=== PATIENT | female | born 1955 | race Caucasian/White ===

== ENCOUNTER → 2018-02-06 10:56 | Outpatient (CLI) | payer OTHER, SELFPAY ==
[2018-02-07 08:53] LABS: Hep C Antibodies <0.1 s/co ratio (0.0-0.9)
== END ==
PROVIDERS: Family Provider Family Medicine; PCP Family Medicine; Visit Provider Family Medicine
DX: Z11.59 Encounter for screening for other viral diseases (principal)
CPT/HCPCS: 36415; 86803

== ENCOUNTER → 2018-02-18 10:20 | Outpatient (CLI) | payer OTHER, SELFPAY ==
[2018-02-20 09:30] LABS: HPV Reflexed? NOT INDICATED
== END ==
PROVIDERS: Family Provider Family Medicine; PCP Family Medicine; Visit Provider Family Medicine
DX: Z01.419 Encounter for gynecological examination (general) (routine) without abnormal findings (principal)
CPT/HCPCS: 36415; 82306; 88175; G0145

== ENCOUNTER 2018-07-18 06:03 | Day surgery (SDC) | payer OTHER, SELFPAY ==
[2018-07-18] VITALS (9 sets, daily range): BP systolic 84–134; BP diastolic 53–89; PULSE 55–65; RESP 14–16; TEMP 36.2–36.6; O2SAT 93–100; BMI 33.7
--- NOTE | 2018-07-18 | COLBX_PTH ---
PATIENT: RAO MENENDEZ LOC: EN U#:[id number] AGE/SX: 62/F ROOM: RE07/18/[address]: Dr. Finn Cabezas MD : 1955 BED: DIS: 07/18/2018 SPEC #: [id number] RECD: 07/18/18 13:11 STATUS: SULY RECheri #: [id number] DIAMOND: 07/18/18 00:[address]: Finn Cabezas DEPT: SURGICAL PATHOLOGY RECD BY: David Fortune ENTERED: 07/18/18 13:11 SP TYPE: COLON BX OTHR DR: Dr. Apple Quiles MD Tissues: Descending colon Procedures: Surgery Specimen Level IV HEADER OPERATION: Colonoscopy - open access (MOD) PRE-OP DIAGNOSIS: Screening TISSUE SUBMITTED: Biopsy polyp descending colon MICROSCOPIC DIAGNOSIS Polyp descending colon, biopsy: Tubular adenoma. SJ:telma 07/21/18 MICROSCOPIC DESCRIPTION Slides are reviewed. GROSS DESCRIPTION Received in fixative is one container labeled with the patient's name and designated biopsy polyp descending colon. The specimen consists of one irregular fragment of light johnston soft tissue that measures 0.3 x 0.3 x 0.1 cm. The specimen is totally submitted in one cassette. / SJ:telma 07/18/18 TC:1 CPT: 96567
--- NOTE | 2018-07-18 07:05 | PCM.HP.STD ---
Problem List (1) Screening for intestinal cancer Status: Acute History of Present Illness Date of Admission: 07/18/18 The patient is a 62 year old F who enjoys good health. Her most recent colonoscopy was 10 years ago. She denies any bright red blood per rectum or melena. No abdominal pain. She has no direct family members with colon cancer. She presents via our open access program. Past Medical History Allergies ampicillin Allergy (Verified 07/17/18 15:53) Itching Home Medications: Ambulatory Orders Medication Instructions Recorded Cholecalciferol (VIT D3) [Vitamin 1,000 unit PO DAILY 07/17/18 D] Smoking Status: Never smoker Tobacco Use: Non-smoker Review of Systems Constitutional: Denies: Anorexia Cardiovascular: Denies: Chest Pain Respiratory: Denies: Cough Gastrointestinal: Denies: Abdominal Pain Psychiatric: Denies: Anxiety Endocrine: Denies: Change in Body Habitus VTE Information - Inpt Only VTE Present on Admission: No Patient Problems: Active and Suspected Problems Screening for intestinal cancer (Acute) - Physical Exam General: Alert, Oriented x3, Cooperative, No apparent distress HEENT: Atraumatic Oral: Moist Mucosa Neck: Supple Lungs: Clear to auscultation Cardiovascular: Regular rate, Regular Rhythm Abdomen: Bowel Sounds Present, Soft, Non Tender Extremities: No clubbing Skin: No rashes Lymphatic: No Cervical, Supraclavicular, or Inguinal Adenopathy Neurological: Cranial nerves II-XII grossly intact Psych/Mental Status: Normal Affect Vital Signs Temp Pulse Resp BP Pulse Ox 97.2 F L 60 14 125/79 H 97 07/18/18 06:26 07/18/18 06:26 07/18/18 06:26 07/18/18 06:26 07/18/18 06:26 Oxygen Delivery Method Room Air Weight: 196 lb 6.91 oz Body Mass Index (BMI) 33.7 Assessment/Plan All Active Problems Screening for intestinal cancer (Acute) Plan to proceed with a colonoscopy with possible biopsy or polypectomy is indicated. She is aware of the technique, benefits, risks and alternatives. She tolerated the majority of her bowel prep. We will proceed as noted. Finn Cabezas M.D., F.A.C.S.
--- NOTE | 2018-07-18 07:40 | OP.ENDO_ITS ---
Patient Name: Jessica Rahman Procedure Date: 07/18/2018 7:02 AM Date of : 1955 Age: 62 Procedure: Colonoscopy Indications: Screening for colorectal malignant neoplasm Providers: Finn Cabezas MD Referring MD: Finn Cabezas MD Medicines: Midazolam 4 mg IV, Meperidine 100 mg IV Patient Profile: Last Colonoscopy: 10 years ago. Complications: No immediate complications. Procedure: Pre-Anesthesia Assessment: - Prior to the procedure, a History and Physical was performed, and patient medications and allergies were reviewed. The patient's tolerance of previous anesthesia was also reviewed. The risks and benefits of the procedure and the sedation options and risks were discussed with the patient. All questions were answered, and informed consent was obtained. Prior Anticoagulants: The patient has taken no previous anticoagulant or antiplatelet agents. ASA Grade Assessment: II - A patient with mild systemic disease. After reviewing the risks and benefits, the patient was deemed in satisfactory condition to undergo the procedure. After I obtained informed consent, the scope was passed under direct vision. Throughout the procedure, the patient's blood pressure, pulse, and oxygen saturations were monitored continuously. The colonoscope was introduced through the anus and advanced to the cecum, identified by appendiceal orifice and ileocecal valve. The colonoscopy was performed with moderate difficulty due to a tortuous colon. The patient tolerated the procedure well. The quality of the bowel preparation was good. The ileocecal valve was photographed. Moderate Sedation: Moderate (conscious) sedation was personally administered by the endoscopist. The following parameters were monitored: oxygen saturation, heart rate, blood pressure, and response to care. Total physician intraservice time was 15 minutes. Scope In: 7:13:59 AM Scope Withdrawal Time 0 hours 8 minutes 49 seconds Scope Out: 7:34:15 AM Total Procedure Duration Time 0 hours 20 minutes 16 seconds Findings: The perianal and digital rectal examinations were normal. A 5 mm polyp was found in the descending colon. The polyp was sessile. The polyp was removed with a cold biopsy forceps. Resection and retrieval were complete. The colon (entire examined portion) was significantly tortuous. Advancing the scope required changing the patient to a supine position and using manual pressure. The exam was otherwise without abnormality. Impression: - One 5 mm polyp in the descending colon, removed with a cold biopsy forceps. Resected and retrieved. - Tortuous colon. - The examination was otherwise normal. Recommendation: - Discharge patient to home. - Resume previous diet. - Continue present medications. - Telephone my office for pathology results in 1 week. - Repeat colonoscopy in 5 years for surveillance. Procedure Code(s): --- Professional --- 77735, Colonoscopy, flexible; with biopsy, single or multiple 99763, 59, Moderate sedation services provided by the same physician or other qualified health elderly caregiver performing the diagnostic or therapeutic service that the sedation supports, requiring the presence of an independent trained observer to assist in the monitoring of the patient's level of consciousness and physiological status; initial 15 minutes of intraservice time, patient age 5 years or older Diagnosis Code(s): --- Professional --- Z12.11, Encounter for screening for malignant neoplasm of colon D12.4, Benign neoplasm of descending colon Q43.8, Other specified congenital malformations of intestine CPT copyright 2017 [employer]. All rights reserved. The codes documented in this report are preliminary and upon conduit worker review may be revised to meet current compliance requirements. Finn Cabezas MD 07/18/2018 7:40:17 AM This report has been signed electronically. Number of Addenda: 0 Note Initiated On: 07/18/2018 7:02 AM
== END 2018-07-18 09:02 | disposition home or self-care (01) ==
LOC: EN 06:04 → AC 06:05
PROVIDERS: Family Provider Family Medicine; PCP Family Medicine; Referring Provider Surgery; Visit Provider Surgery
PROC: 0DJD8ZZ Inspection of Lower Intestinal Tract, Via Natural or Artificial Opening Endoscopic (ICD-10-PCS; CPT 45378; principal; 2018-07-18 06:55)
DX: Z12.11 Encounter for screening for malignant neoplasm of colon (principal); D12.4 Benign neoplasm of descending colon; Q43.8 Other specified congenital malformations of intestine; Z78.0 Asymptomatic menopausal state
CPT/HCPCS: 45380; 88305; 99152; 99153; J7120

== ENCOUNTER → 2018-07-21 17:12 | Outpatient (CLI) | payer OTHER, SELFPAY ==
--- NOTE | 2018-07-21 17:15 | RAD_ITS ---
STUDY: X-RAY - RIGHT SHOULDER REASON FOR EXAM: Female, 62 years old. Pain TECHNIQUE: 4 view(s) of the shoulder. COMPARISON: None. FINDINGS: There is no evidence of fracture or dislocation. There are mild degenerative changes. There are no radiodense foreign bodies. RAD/Shoulder min 2 Views IMPRESSION: No fracture or dislocation. Mild degenerative changes. Electronically Signed: Fernando Puga, at 16:00 EDT Tel , Service support ,
== END ==
PROVIDERS: Family Provider Family Medicine; PCP Family Medicine; Referring Provider Family Medicine; Visit Provider Family Medicine
DX: M79.601 Pain in right arm (principal)
CPT/HCPCS: 73030

== ENCOUNTER 2018-09-03 15:30 | Outpatient (RCR) | payer OTHER, SELFPAY ==
--- NOTE | 2018-07-24 16:50 | HP.PTEVAL ---
Patient's Visit Information RAO MENENDEZ is a 62 year old F referred to Physical Therapy by Apple Quiles MD with a diagnosis of R shoulder pain. Date of Evaluation: 07/24/18 Physical Therapist: Magdiel Bergeron DPT, OC - Visit Plan Frequency: 3x /Week Duration: 2-4 Weeks Plan: 3x/week for 2-4 weeks for. 1. US nonthermal to R biceps tendon inn groove. 2. Grade 1-2 join t mobs g-h R and pec stretches. 3. painfree strength of ecc biceps, RC and scap/posture to HEP. 4. ES and ice as needed. 5. Ensure approp activity modification. - Subjective Subjective: R arm started hurting at end of February, not sure why but was edging the sidewalk around that time. (old style with wheel). Arm hurt after doing this. R shoulder feels achy. She works in the kitchen washing dishes. Has been comfortable at rest but it hurts in the morning adn will wake her up at night. Feels ok after work. Tying Apron and fastening bra bothers her. Reaching back to the console in the car forced her to remove the remote. Just sought treatment lately, x rays show OA. Not bad. Takes ibuprofen but nothing prescription. No missed work. Life is normal she just hurts. R handed. - Pain R shoulder Pain Intensity (Out of 10): 0 Pain Intensity Range: 0, 2, 5, 10 Comment: worse reaching, ache is a 2. - Objective R biceps tendon in groove max tender, other shoulder structures not bad. Posture is forward head and protracted scap slightly elevated. Full aROM B UE, end range ext rot adn IR on R painful. Strength in biceps 4/5 adn painful, supination 4/5 painful and others 4+ without much pain. Shoulder flexion palm up 4- and painful, empty can 4 adn painless. - ext rotation lag test, slight + R jacob koo, Joyce griffin. 2/3 bi and tri reflexes B. Sensation WNl to gross light touch. Neck ROM painfree adn symmterical. - Goals Goal 1:: Patient feel 75% improved with pain no greater than 1/10 Goal Time Frame: 4-6 Weeks Goal 2:: Fasten bra and reach back without increased pain in R UE. Goal Time Frame: 4-6 Weeks Goal 3:: Sleep without waking at night due to pain. Goal Time Frame: 2-4 Weeks Goal 4:: I approp HEP to minimize future problems Goal Time Frame: 4-6 Weeks - Rehabilitation Potential Physical Therapy Diagnosis: R biceps tendonitis Rehabilitation Potential: Good - Anticipated Interventions Patient/Client Instruction: Educate patient on: Condition, Plan of Care For the Purpose of:: To decrease pain, To increase tolerance to activity/condition/position Therapeutic Exercise to Include: Strength training, Flexibilty training, Passive ROM, Active ROM For the Purpose of:: To decrease pain, To increase ROM, To increase tolerance to activity/condition/position Manual Therapy Techniques to Include: Mobilization, Soft tissue mobilization For the Purpose of:: To decrease pain, To increase ROM TENS: Yes Cryotherapy (ice pack, ice massage): Yes Ultrasound (thermal/non thermal): Yes - nonthermal For the Purpose of:: To decrease pain, To decrease swelling/inflammation Thank you for the opportunity to evaluate your patient. For Medicare and Medicare HMO plans, please review the plan of care and approve it. It will need to be FAXED BACK to us at [phone] for Medicare purposes. Please let me know if there are questions or concerns regarding this plan of care. Physician Signature: Date:
--- NOTE | 2018-09-03 15:54 | HP.PTDCSUM ---
HP - PT D/C Summary It has been my pleasure to treat RAO MENENDEZ under orders from Apple Quiles MD, for the diagnosis of R shoulder pain for a total of 8 visit(s). Discharge Date: 09/03/18 Please see the following information for a summary of their discharge status. - Subjective Subjective: Shoulder is about the same with slight improvement since last time. Has not been overly diligent with ex. Bought new bras and they seem to be bothersome if it was too tight, Working on IR of shoulder and it is really improving. Pain in shoulder has tony a few times this week with reach and gets a quick pinch. [place]ing 3x/week. No f/u with doctor. - Pain R shoulder Pain Intensity (Out of 10): 0 - Overall Improvement % Improvement: 75 - Objective Objective/Function: Full aROM and 4/5 strength B shoulders without pain. Posture is improved - Goals Goal 1:: Patient feel 75% improved with pain no greater than 1/10 Goal Progress: Goal Met Goal 2:: Fasten bra and reach back without increased pain in R UE. Goal Progress: Goal Met Goal 3:: Sleep without waking at night due to pain. Goal Progress: Goal Met Goal 4:: I approp HEP to minimize future problems Goal Progress: Goal Met - Plan Plan: D/C - D/C Information Discharge Comments: Willc ontinue with HEp and activity modification and call doctor if pain does not continue to improve. If there are questions or concerns regarding this patient's physical therapy, please feel free to call me at [phone]. Thank you for the referral of this patient. Sincerely, Magdiel Bergeron, DPT, OC
== END 2018-09-03 19:00 | disposition home or self-care (01) ==
LOC: PT 15:30
PROVIDERS: Family Provider Family Medicine; PCP Family Medicine; Referring Provider Family Medicine; Visit Provider Family Medicine
DX: M25.511 Pain in right shoulder (principal)
CPT/HCPCS: 97035; 97110; 97140; 97162; 97164; 97530

== ENCOUNTER → 2018-12-01 08:23 | Outpatient (CLI) | payer OTHER, SELFPAY ==
--- NOTE | 2018-12-01 08:26 | BI_ITS ---
MAMMOGRAPHY - BILATERAL SCREENING REASON FOR EXAM: Female, 63 years old. Routine annual screening examination. PERTINENT HISTORY: Non-contributory. TECHNIQUE: Digital bilateral breast glenn (3D mammographic acquisition) in the CC and MLO projections. 2-D mediolateral oblique (MLO) and craniocaudad (CC) views of both breasts were obtained. CAD: Full Field Digital Mammography with Computer Added Detection was performed. COMPARISON: Comparison is made with prior study May 22, 2017 and February 09, 2016. FINDINGS: Breast Composition: The breasts are almost entirely fatty. There are no dominant masses or suspicious calcifications. Stable 7.6 mm well-defined nodule in the axillary deep portion of the right breast. This most likely represents a small lymph node. No other significant abnormalities are identified. There has been no significant change since the prior study. BI/SCREENING MAMM (CAD), BILAT IMPRESSION: Stable bilateral screening mammogram. Yearly follow-up mammogram recommended. (A) ASSESSMENT CATEGORY: BIRADS Category 2: Benign. A letter regarding these results will be sent to the patient by the facility within 30 days. Approximately 10% of breast cancers are not detected by mammography. A normal mammogram should not delay biopsy of a clinically suspicious abnormality. [id number] Electronically Signed: Parish Echeverria, at 11:10 EDT , Service support ,
== END ==
PROVIDERS: Family Provider Family Medicine; PCP Family Medicine; Visit Provider Family Medicine
DX: Z12.31 Encounter for screening mammogram for malignant neoplasm of breast (principal)
CPT/HCPCS: 77063; 77067

== ENCOUNTER → 2019-04-30 | Outpatient (CLI) | payer OTHER, SELFPAY ==
[2019-04-30 11:27] LABS: Vitamin D,25 Hydroxy 19.9 ng/mL (29.95-100.01)
== END | disposition home or self-care (01) ==
LOC: LAB 10:42
PROVIDERS: Family Provider Family Medicine; PCP Family Medicine; Referring Provider Family Medicine; Visit Provider Family Medicine
DX: E55.9 Vitamin D deficiency, unspecified (principal)
CPT/HCPCS: 36415; 82306

== ENCOUNTER 2019-09-08 15:30 | Outpatient (RCR) | payer OTHER, SELFPAY | END 2019-09-08 19:00 | disposition home or self-care (01) | LOC: MASS 15:30 | PROVIDERS: Family Provider Family Medicine; PCP Family Medicine; Visit Provider Family Medicine | DX: M79.603 Pain in arm, unspecified (principal); M79.10 Myalgia, unspecified site | CPT/HCPCS: 97124 ==

== ENCOUNTER → 2020-06-27 07:17 | Outpatient (CLI) | payer OTHER, SELFPAY ==
[2018-07-18 06:26] VITALS: BMI 33.7
--- NOTE | 2020-06-27 07:20 | BI_ITS ---
MAMMOGRAPHY - BILATERAL SCREENING REASON FOR EXAM: Female, 64 years old. Routine annual screening examination. PERTINENT HISTORY: Non-contributory. TECHNIQUE: Digital bilateral breast mac (3D mammographic acquisition) in the CC and MLO projections. 2-D mediolateral oblique (MLO) and craniocaudad (CC) views of both breasts were obtained. CAD: Full Field Digital Mammography with Computer Added Detection was performed. COMPARISON: None. FINDINGS: Breast Composition: The breasts are almost entirely fatty. There are no dominant masses or suspicious calcifications. No other significant abnormalities are identified. BI/SCREEN MAMM (CAD) W/MAC BILAT IMPRESSION: Stable bilateral screening mammogram. Yearly follow-up mammogram recommended. (A) ASSESSMENT CATEGORY: BIRADS Category 2: Benign. A letter regarding these results will be sent to the patient by the facility within 30 days. Approximately 10% of breast cancers are not detected by mammography. A normal mammogram should not delay biopsy of a clinically suspicious abnormality. [id number] Electronically Signed: Misbah Coronado, at 16:33 EDT Tel , Service support ,
== END ==
PROVIDERS: PCP Family Medicine; Referring Provider Family Medicine; Visit Provider Family Medicine
DX: Z12.31 Encounter for screening mammogram for malignant neoplasm of breast (principal)
CPT/HCPCS: 77063; 77067

== ENCOUNTER → 2020-10-24 16:46 | Outpatient (CLI) | payer OTHER, SELFPAY ==
[2018-07-18 06:26] VITALS: BMI 33.7
--- NOTE | 2020-10-24 16:53 | RAD_ITS ---
STUDY: X-RAY - LEFT FOOT CLINICAL: Bilateral foot pain, left greater than right. TECHNIQUE: 3 view(s) of the foot. COMPARISON: None. FINDINGS: There is a plantar calcaneal enthesophyte and a small posterior calcaneal enthesophyte. Otherwise, unremarkable talus, calcaneus, and tarsal bones. There is an os trigonum. Normal visualized subtalar, talonavicular, calcaneocuboid, tarsal and tarsometatarsal articulations. Normal metatarsi. Normal metatarsophalangeal joint of the great toe. Normal tibial and fibular sesamoid bones. Normal interphalangeal joint of the great toe. Normal phalanges of the great toe. Normal second through fifth metatarsophalangeal joints. Normal interphalangeal joints and phalanges of the lesser toes. The soft tissue structures are unremarkable. RAD/Foot min 3 Views IMPRESSION: Calcaneal enthesopathy. Electronically Signed: Reno Sierra MD at 9:22 EST Tel , Service support ,
--- NOTE | 2020-10-24 16:53 | RAD_ITS ---
STUDY: X-RAY - RIGHT FOOT CLINICAL: Bilateral foot pain, left greater than right. TECHNIQUE: 3 view(s) of the foot. COMPARISON: None. FINDINGS: There are small posterior and plantar calcaneal enthesophytes. Otherwise, unremarkable talus, calcaneus, and tarsal bones. There is an os trigonum. Normal visualized subtalar, talonavicular, calcaneocuboid, tarsal and tarsometatarsal articulations. Normal metatarsi. Normal metatarsophalangeal joint of the great toe. Normal tibial and fibular sesamoid bones. Normal interphalangeal joint of the great toe. Normal phalanges of the great toe. Normal second through fifth metatarsophalangeal joints. Normal interphalangeal joints and phalanges of the lesser toes. The soft tissue structures are unremarkable. RAD/Foot min 3 Views IMPRESSION: Mild calcaneal enthesopathy. Electronically Signed: Reno Sierra MD at 9:21 EST Tel , Service support ,
== END ==
PROVIDERS: PCP Family Medicine; Referring Provider Family Medicine; Visit Provider Family Medicine
DX: M79.672 Pain in left foot (principal); M79.671 Pain in right foot
CPT/HCPCS: 73630

== ENCOUNTER → 2021-06-26 07:27 | Outpatient (CLI) | payer OTHER, SELFPAY ==
--- NOTE | 2021-06-26 09:04 | NEURO_ITS ---
NCS and/or EMG Patient Report Ordering Doctor: Apple Quiles DATE OF SERVICE: 06/26/21 Indication: Progressive numbness and tingling in the first two digits of the right hand. Worsening digging machine operator strength. Pain in the right wrist and thumb. Symptoms are exacerbated by sleep- wears a brace at night with little relief. No neck or radicular pain. Findings: Nerve conduction studies were performed in the right upper extremity. The right median motor study recording the abductor pollicis brevis showed a normal amplitude, prolonged distal latency and normal conduction velocity. The right ulnar motor study recording the abductor digiti minimi showed a normal amplitude, normal distal latency and normal conduction velocity. No conduction block or focal slowing was present across the elbow. Right median-ulnar lumbrical / interosseous motor latencies showed a prolonged median latency compared to the ulnar. The right median sensory response recording digit two showed a reduced amplitude, prolonged latency and markedly slowed conduction velocity. The right ulnar sensory response recording digit five showed a normal amplitude, latency and conduction velocity. The right radial sensory response recording over the extensor snuff box showed a normal amplitude, latency and conduction velocity. Needle EMG of the right upper extremity muscles was performed. No denervation was seen in any muscle. In the abductor pollicis brevis, motor units were slightly large and polyphasic with normal recruitment. All other muscles revealed normal motor unit morphology, activation and recruitment patterns. Impression: This is an abnormal study. There is electrophysiologic evidence of a median neuropathy across the right wrist. The pathophysiology is predominantly demyelination, however, there is evidence of secondary axonal loss. These findings would be compatible with the clinical diagnosis of carpal tunnel syndrome. In addition, there is no electrophysiologic evidence of a superimposed cervical radiculopathy or other entrapment neuropathy in the right upper extremity. Randy Graham D.O. Multi Select Codes Neurology Neurology Interp Codes: 49824-45 Musc test done w/n test comp (interp) and 49397-81 Nrv cndj test 7-8 studies (interp)
== END ==
PROVIDERS: PCP Family Medicine; Referring Provider Family Medicine; Visit Provider Family Medicine
DX: G56.01 Carpal tunnel syndrome, right upper limb (principal)
CPT/HCPCS: 95886; 95910

== ENCOUNTER 2021-10-03 05:45 | Day surgery (SDC) | payer OTHER, SELFPAY ==
[2021-10-03 06:25] VITALS: BP 116/78; PULSE 75; RESP 16; TEMP 36.4; O2SAT 96; BMI 34.3
[2021-10-03] MEDS: Lactated Ringers 1,000 ML 15 ML IV (06:34)
--- NOTE | 2021-10-03 07:15 | PCM.HP.BLA ---
History and Physical Date of Admission: 10/03/21 Date of Service: 07/17/21 MR#:[id number]:[id number]: RAO MENENDEZ #[id number] Provider:Dr. Adrien Gomes, Age/Sex: 65/F Location:[facility]:Signed Intake Intake Visit Reasons: RIGHT WRIST Allergies ampicillin Allergy (Verified 07/17/18 15:53) Itching Medications cholecalciferol (vitamin D3) [Vitamin D] 1,000 unit PO DAILY 07/17/18 [History Confirmed 07/17/21] ascorbate calcium (vitamin C) 500 mg tablet 500 mg PO DAILY 07/17/21 [History Confirmed 07/17/21] esomeprazole magnesium 40 mg capsule,delayed release 40 mg PO DAILY 07/17/21 [History Confirmed 07/17/21] multivitamin 1 tab PO DAILY 07/17/21 [History Confirmed 07/17/21] [facility] Medical History (Updated 07/17/21 @ 09:42 by Stephanie Jhaveri) History of fainting Surgical History (Updated 07/17/21 @ 09:29 by Stephanie Jhaveri) History of tonsillectomy Social History Smoking Status: Never smoker HPI RIGHT WRIST Details: Parts of this documentation were recorded by a scribe, this documentation accurately reflects the service provided and the decisions made by me, Dr. Adrien Gomes, 07/17/21 3138. RAO MENENDEZ is a 65 year old F NEW patient here today for right wrist numbness/tingling and achy pain. She states that she has had the numbness and tingling for about 1 year and this has worsened. She states that she has been using a brace at night for about 6-7 months with some relief at first but the pain and tingling returned. She has numbness and tingling of the 1st through 3rd fingers. 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 Denies any surgery or injections. Denies any injuries to the right wrist. She did have a EMG completed 06/26/2021 which showed carpal tunnel syndrome. She states that she feels a snap inside the wrist at times. ROS Musc Denies joint swelling, Reports numbness and Reports tingling Neuro Yes numbness and Yes tingling Ortho Exam General General: Yes no acute distress Neurologic: Yes alert and Yes oriented x3 Psychologic: Yes reasonable and appropriate Right Wrist/Hand Skin/Wound: No Swelling, No Ecchymosis and Yes capillary refill normal Right Wrist: Yes ROM-Extension 0-60, ROM-Flexion 0-80, ROM-Pronation 0-80, ROM-Supination 0-90, Durken's Test, Phalen's and tender to palpate carpometacarpal joint; No Tinel's, CMC Grind, Thenar Atrophy or Hypothenar Atrophy WRIST: no atrophy good wrist flexion Left Wrist/Hand Skin/Wound: No Swelling and No Ecchymosis Supplemental Info 06/26/21 EMG right upper extremity: Prolonged latency and decreased conduction velocity consistent with carpal tunnel right Coding Level of Care Code Off vis,new,level 3 Diagnoses Right carpal tunnel syndrome G56.01 Assessment and Plan Assessment and Plan (1) Right carpal tunnel syndrome: Status: Acute Plan - Dr. Adrien Gomes, DO: Personally reviewed patients EMG study. Patient educated that she does have right carpal tunnel syndrome and her symptoms are consistant with this. She may also have some CMC joint arthritis but this is not a main concern of hers today and she declined xrays to further eval this. Educated that her treatment options are do nothing or bracing or carpal tunnel release. Reviewed the pre-operative plans with the patient. Risks and benefits of the procedure were fully explained, including but not limited to infection, neurovascular injury, continued pain, arthritis, stiffness, need for further surgery, re-injury, DVT, PE, general risks of anesthesia, and loss of limb or life. The patient understands all the risks and does wish to proceed with right carpal tunnel release. She will be able to move her wrist/hand right after surgery. She will have 1/2lb lifting restriction for 2 weeks then will have a 5lb lifting restriction for 1 week. She will be off work for about 3-4 weeks post op secondary to the type of work she does. She wishes to proceed with surgery in Follow up 2 weeks post op or sooner if pain, swelling, numbness or associated symptoms, or concerns develop. All questions answered. Patient in agreement of plan. 07/17/21 0958<Electronically signed by Adrien Gomes DO>Date Adrien Gomes DO I have re-examined the patient. There are no clinical changes since date of exam
--- NOTE | 2021-10-03 07:16 | EX.PCM.DISCH ---
Discharge Instructions Diet Discharge Diet: No restrictions Activity Keep extremity elevated above heart level: Operative Extremity Dressing / Incision Additional Dressing/Incision Instructions:: Ice and elevate operative extremity next 72 hours. Keep dressing on clean and dry for 48 hours then may remove and allow warm soapy water to rinse over incision but do not submerge until sutures are out. Then apply bandaid over incision and change daily. encourage finger range of motion. Not lift more than 1/2 pound. Minimize narcotic use only as needed and directed, may use OTC NSAID and Tylenol to supplement/substitute for pain control. Follow Up Care Please Follow Up With: Adrien Gomes DO When: 2 weeks Test Results: Test results from this visit will be discussed in further detail at your follow-up appointment, if applicable. Discharge Plan Admission Primary Reason for Your Visit: Right carpal tunnel release Attending Provider: Adrien Gomes Primary Care Provider: Apple Quiles Discharge Orders/Prescriptions Prescriptions: New oxycodone 5 mg tablet 5 mg PO Q4H PRN (Reason: pain) 3 Days Qty: 15 RF: 0 Continued ascorbate calcium (vitamin C) 500 mg tablet 500 mg PO DAILY RF: 0 multivitamin Tablet 1 tab PO DAILY RF: 0 cholecalciferol (vitamin D3) [Vitamin D3] 1,000 UNIT tablet 1,000 unit PO DAILY RF: 0 calcium carbonate [Tums] 300 mg (750 mg) Tablet,Chewable 300 mg PO PRN PRN (Reason: Indigestion) RF: 0 magnesium 200 mg Tablet 400 mg PO DAILY RF: 0 Referrals / Follow Up: Apple Quiles MD [Primary Care Provider] - Disposition Disposition (needs filled in before D/C Order can be placed): Home, Self Care
--- NOTE | 2021-10-03 07:20 | PCM.OPRPT ---
Report of Operation Date of Procedure: 10/03/21 Description of Surgical Findings:: Preoperative diagnosis; right carpal tunnel syndrome Postoperative diagnosis; same Procedure: Right open carpal tunnel release Anesthesia: Local with MAC Tourniquet time; 10 minutes 250 mm Hg Complications: None Indication for procedure; This is a 66-year-old female with long-standing symptoms consistent with carpal tunnel syndrome the patient did have electrodiagnostic evidence of this and has failed conservative treatment. Risks benefits and alternatives were reviewed including risks of bleeding infection nerve artery tissue damage need for further surgery and continued pain and symptoms, hypersensitivity to scar and Pillar pain. Procedure; The patient was met in the preoperative holding area the operative extremity was identified by both patient and physician and was marked the patient was met by anesthesia and brought back to the operating room and transferred to the operating table in the supine position. Anesthesia was started. A well-padded tourniquet was placed on the operative upper extremity. The patient was prepped and draped in the usual sterile fashion. A timeout was called to ensure the proper patient procedure and extremity were being contemplated. 0.5 percent lidocaine with epinephrine was injected into the incisional area. An Esmarch was used to exsanguinate the extremity. The tourniquet was inflated to 250 mmHg. A midline incision was made with a 15 blade scalpel between the thenar and hypothenar eminence. This was carried down through the skin and subcutaneous tissue. Paola retractors were then used, a deep blade scalpel was used to make a deep incision in the palmar aponeurosis. The paola retractors were then placed deep to this and the transverse carpal ligament was identified a perforation was made with a scalpel and a Littler scissors were used to complete the release of the transverse carpal ligament distally under direct visualization with the tips facing ulnarly until the perivascular fat was reached. Then turning our attention proximally using a tension slide technique the proximal extent of the transverse carpal ligament was released . There was noted to be flattening of the median nerve. The wound was thoroughly irrigated and was closed with 4-0 nylon vertical mattress stitches. Dressing was applied in the form of xeroform 4 x 4, web roll and an ryan wrap. Tourniquet was let down there is no intraoperative complications patient tolerated the procedure well and was transferred to the PACU. All counts were correct.
[2021-10-03] MEDS: Bupivacaine Mpf 0.5% 30 ML VIAL (07:32)
[2021-10-03 07:50] VITALS: BP 116/78; BP 99/72; PULSE 68; RESP 18; TEMP 36.1; O2SAT 93
[2021-10-03 07:52] VITALS: BP 112/78; BP 116/78; PULSE 67; RESP 18; O2SAT 99
[2021-10-03 08:00] VITALS: BP 116/78; PULSE 67; RESP 18; O2SAT 99
[2021-10-03 08:05] VITALS: BP 116/78; BP 120/76; PULSE 63; RESP 18; TEMP 35.9; O2SAT 100
[2021-10-03 08:25] VITALS: BP 116/78
== END 2021-10-03 23:59 | disposition home or self-care (01) ==
LOC: SDC 05:46 → AC 05:48
PROVIDERS: PCP Family Medicine; Referring Provider Orthopaedic Surgery; Visit Provider Orthopaedic Surgery
PROC: (CPT 64721; principal; 2021-10-03 07:00)
DX: G56.01 Carpal tunnel syndrome, right upper limb (principal)
CPT/HCPCS: 64721; 01810; J7120; J2405

== ENCOUNTER → 2022-01-18 | Outpatient (CLI) | payer OTHER, SELFPAY ==
--- NOTE | 2022-01-18 13:36 | BD_ITS ---
STUDY: DUAL ENERGY X-RAY ABSORPTIOMETRY / DXA REASON FOR EXAM: Female, 66 years old. Z780. The patient is postmenopausal. TECHNIQUE: Bone Mineral Density (BMD) measurements of lumbar spine and bilateral hips were obtained. COMPARISON: None. FINDINGS: Lumbar Spine (L1-L4): g/cm2 (1.109) / T-score (0.5) / Z-score (2.2) Findings are suggestive of normal bone density with a low fracture risk. Left Femur Total: g/cm2 (0.899) / T-score (-0.3) / Z-score (0.8) Left Femoral Neck: g/cm2 (0.757) / T-score (-0.8) / Z-score (0.7) Right Femur Total: g/cm2 (0.976) / T-score (0.3) / Z-score (1.5) Right Femoral Neck: g/cm2 (0.805) / T-score (-0.4) / Z-score (1.1) BD/Dexa Bone Density Study IMPRESSION: The patient is considered normal as outlined below according to World [employer] Organization (WHO) criteria with a low fracture risk. Reference Information: The T-score is the number of standard deviations above or below the standard which is normal for young adults at their peak bone mineral density. The World Health Organization (WHO) interprets the T-scores as follows: Above -1 Normal bone density Between -1 and -2.5 Osteopenia Equal to / or below -2.5 Osteoporosis As a practical clinical guideline, osteopenia may be graded as follows: Mild -1 through -1.5 Moderate -1.6 through -2.0 Severe -2.1 through -2.4 The Z-score is the number of standard deviations above or below age-matched controls. A Z-score of less than -1.5 would be considered abnormal. References: 1. NIH Osteoporosis and Related Bone Diseases www osteo.org 2. International Society for Clinical Densitometry www iscd.org 3. National Osteoporosis Foundation www nof.org Electronically Signed: Parish Echeverria MD at 15:43 EDT ,
--- NOTE | 2022-01-18 13:37 | BI_ITS ---
MAMMOGRAPHY - BILATERAL SCREENING REASON FOR EXAM: Female, 66 years old. Routine annual screening examination. PERTINENT HISTORY: Non-contributory. TECHNIQUE: Digital bilateral breast mac (3D mammographic acquisition) in the CC and MLO projections. 2-D mediolateral oblique (MLO) and craniocaudad (CC) views of both breasts were obtained. CAD: Full Field Digital Mammography with Computer Added Detection was performed. COMPARISON: Comparison is made with prior study dated 06/27/2020 and 12/01/2018. FINDINGS: Breast Composition: The breasts are almost entirely fatty. There are no dominant masses or suspicious calcifications. Stable 7.7 mm well-defined nodule in the axillary region of the right breast suggestive of a small lymph node. No other significant abnormalities are identified. There has been no significant change since the prior study. BI/SCRN MAMM (CAD)W/MAC BILAT IMPRESSION: Stable bilateral screening mammogram. Yearly follow-up mammogram recommended. (A) ASSESSMENT CATEGORY: BIRADS Category 2: Benign. A letter regarding these results will be sent to the patient by the facility within 30 days. Approximately 10% of breast cancers are not detected by mammography. A normal mammogram should not delay biopsy of a clinically suspicious abnormality. [id number] Electronically Signed: Parish Echeverria MD at 15:04 EDT ,
== END | disposition home or self-care (01) ==
LOC: OPBD 13:32
PROVIDERS: PCP Family Medicine; Visit Provider Family Medicine
DX: Z12.31 Encounter for screening mammogram for malignant neoplasm of breast (principal); N95.9 Unspecified menopausal and perimenopausal disorder
CPT/HCPCS: 77063; 77067; 77080

== ENCOUNTER → 2022-06-21 | Outpatient (CLI) | payer OTHER, SELFPAY ==
[2022-06-21 09:03] LABS: Vitamin D,25 Hydroxy 68.3 ng/mL
== END | disposition home or self-care (01) ==
LOC: LAB 06:02
PROVIDERS: PCP Family Medicine; Referring Provider Family Medicine; Visit Provider Family Medicine
DX: E55.9 Vitamin D deficiency, unspecified (principal)
CPT/HCPCS: 36415; 82306

== ENCOUNTER → 2022-06-22 | Outpatient (CLI) | payer OTHER, SELFPAY ==
[2022-06-29 15:28] LABS: HPV APTIMA, High Risk Negative (Negative); HPV Reflexed? YES, CHARGE PATIENT
== END | disposition home or self-care (01) ==
LOC: LABSPEC 17:36
PROVIDERS: PCP Family Medicine; Visit Provider Family Medicine
DX: Z12.4 Encounter for screening for malignant neoplasm of cervix (principal)
CPT/HCPCS: 87624; 88175; G0145

== ENCOUNTER 2023-07-26 09:12 | Day surgery (SDC) | payer OTHER, SELFPAY ==
[2023-07-26] VITALS (7 sets, daily range): BP systolic 105–117; BP diastolic 50–66; PULSE 58–77; RESP 16–18; TEMP 36.1–36.3; O2SAT 95–100; BMI 35.5
--- NOTE | 2023-07-26 09:25 | PCM.HP.STD ---
HPI - General General Date of Admission: 06/07/20 Date of Service: 07/26/23 Chief Complaint: Personal history of colon polyps HPI Narrative RAO MENENDEZ, is a 67 F who presents via open access today. She has had a personal history of colon polyps. Previous colonoscopy was July 08, 2018. I took 2 tubular adenomas off of her at that time. She was noted to have quite a tortuous colon. Fortunately she denies any bright red blood per rectum or any abdominal pain no melena. No history of DVT. [facility] Medical History (Updated 07/26/23 @ 09:[address] Finn Cabezas MD) Anxiety Cancer Family hx of colon cancer Heartburn History of edema History of fainting Injury of head and neck Leg cramps Non-smoker Post-menopausal Right carpal tunnel syndrome Syncope Tubular adenoma of colon Wears glasses Home Medications cholecalciferol (vitamin D3) 25 mcg (1,000 unit) tablet (Vitamin D3) 1,000 unit PO DAILY 07/17/18 [History Last Taken Unknown] ascorbate calcium (vitamin C) 500 mg tablet 500 mg PO DAILY 07/17/21 [History Last Taken Unknown] multivitamin 1 tab PO DAILY 07/17/21 [History Last Taken Unknown] calcium carbonate 300 mg (750 mg) chewable tablet (Tums) 300 mg PO PRN PRN Indigestion 09/19/21 [History Last Taken Unknown] magnesium 200 mg tablet 400 mg PO DAILY 09/19/21 [History Last Taken Unknown] red beet root 250 mg-sour patel extract 0.5 mg chewable tablet 2 tab PO DAILY 07/19/23 [History Last Taken Unknown] Allergy/AdvReac Type Severity Reaction Status Date / Time ampicillin Allergy Itching Verified 07/24/23 12:04 Family History (Updated 05/31/23 @ 09:24 by Betsy Culp MA) Father CAD (coronary artery disease) Alzheimer disease Mother Colon cancer Alzheimer disease Surgical History (Updated 07/24/23 @ 12:12 by Shruti Rey) History of carpal tunnel surgery of right wrist History of tonsillectomy Hx of colonoscopy Social History (Updated 05/31/23 @ 09:26 by Betsy Culp MA) adopted: No household members: spouse housing: house number of children: 4 current occupational status: employed current occupation: [employer] current occupational exposures/hazards: Yes sexually active: Yes Smoking Status: Never smoker alcohol intake: never substance use type: does not use seatbelt use: always do you feel safe at home: Yes ROS Constitutional Constitutional: Reports systems reviewed and no addt'l complaints, except as documented Cardiovascular Cardiovascular: Denies chest pain Respiratory/Chest Respiratory/Chest: Denies shortness of breath at rest Gastrointestinal Gastrointestinal: Denies abdominal pain, change in bowel habits, hematochezia or melena Physical Exam Const alert, oriented x3 and no apparent distress General Appearance: cooperative and comfortable Eyes General Eye: normal appearance of both eyes Neck General: normal visual inspection Chest inspection of chest normal Resp Effort and Inspection: able to speak in complete sentences and symmetric chest movement Auscultation: clear to auscultation bilaterally Cardio regular rate and regular rhythm GI soft to palpation, non-tender and non-distended Extremity no calf tenderness Neuro oriented x3 Psych thought process normal Assessment & Plan Assessment/Plan (1) Personal history of colonic polyps: PLAN: 67-year-old female with a personal history of colon polyps. She presents via open access today. Plan to perform a surveillance colonoscopy with possible biopsy or polypectomy as indicated. She is aware of the technique, benefit, risk, alternatives. She has had an opportunity to ask and have questions answered. We will proceed as noted. Finn Cbaezas M.D., F.A.C.S.
[2023-07-26] MEDS: Lactated Ringers 1,000 ML 15 ML IV (09:43)
--- NOTE | 2023-07-26 10:45 | OP.COLON_ITS ---
Patient Name: Jessica Rahman Procedure Date: 07/26/2023 10:50 AM Date of : 1955 Age: 67 Procedure: Colonoscopy Indications: High risk colon cancer surveillance: Personal history of colonic polyps Providers: Finn Cabezas MD Referring MD: Apple Quiles Medicines: See the Anesthesia note for documentation of the administered medications Patient Profile: Last Colonoscopy: June 2018. Complications: No immediate complications. Procedure: Pre-Anesthesia Assessment: - Prior to the procedure, a History and Physical was performed, and patient medications and allergies were reviewed. The patient's tolerance of previous anesthesia was also reviewed. The risks and benefits of the procedure and the sedation options and risks were discussed with the patient. All questions were answered, and informed consent was obtained. Prior Anticoagulants: The patient has taken no anticoagulant or antiplatelet agents. ASA Grade Assessment: II - A patient with mild systemic disease. After reviewing the risks and benefits, the patient was deemed in satisfactory condition to undergo the procedure. After I obtained informed consent, the scope was passed under direct vision. Throughout the procedure, the patient's blood pressure, pulse, and oxygen saturations were monitored continuously. The colonoscope was introduced through the anus and advanced to the cecum, identified by appendiceal orifice and ileocecal valve. The colonoscopy was performed without difficulty. The patient tolerated the procedure well. The quality of the bowel preparation was good. The ileocecal valve and the appendiceal orifice were photographed. Scope In: 10:54:15 AM Scope Withdrawal Time 0 hours 6 minutes 53 seconds Scope Out: 11:07:03 AM Total Procedure Duration Time 0 hours 12 minutes 48 seconds Findings: Hemorrhoids were found on perianal exam. The left colon was moderately tortuous. Advancing the scope required applying abdominal pressure. The exam was otherwise without abnormality. Impression: - Hemorrhoids found on perianal exam. - Tortuous colon. - The examination was otherwise normal. - No specimens collected. Recommendation: - Discharge patient to home. - Resume previous diet. - Continue present medications. - Repeat colonoscopy in 5 years for surveillance. Procedure Code(s): --- Professional --- 65486, Colonoscopy, flexible; diagnostic, including collection of specimen(s) by brushing or washing, when performed (separate procedure) Diagnosis Code(s): --- Professional --- Z86.010, Personal history of colonic polyps K64.9, Unspecified hemorrhoids Q43.8, Other specified congenital malformations of intestine CPT copyright 2021 [employer]. All rights reserved. The codes documented in this report are preliminary and upon furniture packer review may be revised to meet current compliance requirements. Finn Cabezas MD 07/26/2023 11:11:31 AM This report has been signed electronically. Number of Addenda: 0 Note Initiated On: 07/26/2023 10:50 AM
--- NOTE | 2023-07-26 10:45 | OP.CCLET_ITS ---
07/26/2023 Apple Quiles [address] [place] [address] Re : Colonoscopy procedure for Jessica Rahman Dear Dr. Quiles This procedure was performed on Wednesday, July 26, 2023. My impressions and recommendations are as follows: Impressions : - Hemorrhoids found on perianal exam. - Tortuous colon. - The examination was otherwise normal. - No specimens collected. Recommendations : - Discharge patient to home. - Resume previous diet. - Continue present medications. - Repeat colonoscopy in 5 years for surveillance. My findings are described in the full procedure note, which is enclosed. If I can be of further assistance, please feel free to contact me at Doctor phone number(s): Work: . Sincerely, Finn Cabezas MD 07/26/2023 11:11:31 AM This report has been signed electronically.
== END 2023-07-26 13:29 | disposition home or self-care (01) ==
LOC: SDC 09:14 → AC 09:15
PROVIDERS: PCP Family Medicine; Referring Provider Family Medicine; Visit Provider Surgery
PROC: 0DJD8ZZ Inspection of Lower Intestinal Tract, Via Natural or Artificial Opening Endoscopic (ICD-10-PCS; CPT 45378; principal; 2023-07-26 10:10)
DX: Z12.11 Encounter for screening for malignant neoplasm of colon (principal); K64.9 Unspecified hemorrhoids; Z86.010 Personal history of colon polyps; Q43.8 Other specified congenital malformations of intestine; Z80.0 Family history of malignant neoplasm of digestive organs
CPT/HCPCS: 45378; J7120; J2405

== ENCOUNTER → 2023-07-31 | Outpatient (CLI) | payer OTHER, SELFPAY ==
[2023-08-06 17:07] LABS: HPV APTIMA, High Risk Negative (Negative)
== END | disposition home or self-care (01) ==
LOC: LABSPEC 15:38
PROVIDERS: PCP Family Medicine; Referring Provider Obstetrics & Gynecology; Visit Provider Obstetrics & Gynecology
DX: Z12.4 Encounter for screening for malignant neoplasm of cervix (principal)
CPT/HCPCS: 87624; 88175; G0145

== ENCOUNTER → 2023-08-05 | Outpatient (CLI) | payer OTHER, SELFPAY ==
--- NOTE | 2023-08-05 08:02 | BI_ITS ---
MAMMOGRAPHY - BILATERAL SCREENING REASON FOR EXAM: Female, 67 years old. Routine annual screening examination. PERTINENT HISTORY: Non-contributory. TECHNIQUE: Digital bilateral breast mac (3D mammographic acquisition) in the CC and MLO projections. 2-D mediolateral oblique (MLO) and craniocaudad (CC) views of both breasts were obtained. CAD: Full Field Digital Mammography with Computer Added Detection was performed. COMPARISON: Comparison is made with prior study January 18, 2022 and June 27, 2020. FINDINGS: Breast Composition: The breasts are almost entirely fatty. There are no dominant masses or suspicious calcifications. Stable 7.7 mm well-defined nodule in the axillary region of the right breast. This is suggestive of a small lymph node. No other significant abnormalities are identified. There has been no significant change since the prior study. BI/SCRN MAMM (CAD)W/MAC BILAT IMPRESSION: Stable bilateral screening mammogram. Yearly follow-up mammogram recommended. (A) ASSESSMENT CATEGORY: BIRADS Category 2: Benign. A letter regarding these results will be sent to the patient by the facility within 30 days. Approximately 10% of breast cancers are not detected by mammography. A normal mammogram should not delay biopsy of a clinically suspicious abnormality. [id number] Electronically Signed: Parish Echeverria MD at 9:36 EST ,
== END | disposition home or self-care (01) ==
LOC: OPBI 08:01
PROVIDERS: PCP Family Medicine; Referring Provider Family Medicine; Visit Provider Family Medicine
DX: Z12.31 Encounter for screening mammogram for malignant neoplasm of breast (principal)
CPT/HCPCS: 77063; 77067

== ENCOUNTER → 2023-08-12 | Outpatient (CLI) | payer OTHER, SELFPAY ==
--- NOTE | 2023-08-12 15:45 | US_ITS ---
INDICATION: Pelvic Organ Prolapse EXAMINATION: Ultrasound US Transvaginal Non-OB TECHNIQUE: Transvaginal and transabdominal pelvic ultrasound was performed. Grayscale, spectral waveform, and color flow Doppler evaluation of the adnexa. COMPARISON: None. FINDINGS: The uterus measures 6 x 5 x 3.2 cm. Endometrial thickness is within normal limits measuring 4 mm. Few subcentimeter cystic foci in or adjacent to the endometrium. Myometrium is mildly heterogeneous. The ovaries are not visualized bilaterally. No free pelvic fluid. No sonographic evidence of prolapse. US/Transvaginal Non- IMPRESSION: No sonographic evidence of prolapse. Electronically Signed: Dajuan Linares MD at 1:17 EST ,
== END | disposition home or self-care (01) ==
LOC: US 15:45
PROVIDERS: PCP Family Medicine; Referring Provider Obstetrics & Gynecology; Visit Provider Obstetrics & Gynecology
DX: N81.9 Female genital prolapse, unspecified (principal)
CPT/HCPCS: 76830

== ENCOUNTER 2023-10-04 12:06 | Observation (INO) | payer OTHER, SELFPAY ==
--- NOTE | 2023-09-30 09:16 | EKG12_ITS ---
Test Reason : PRE OP Blood Pressure : / mmHG Vent. Rate : 073 BPM Atrial Rate : 073 BPM P-R Int : 178 ms QRS Dur : 084 ms QT Int : 378 ms P-R-T Axes : 038 010 059 degrees QTc Int : 416 ms Normal sinus rhythm Low voltage QRS Borderline ECG Confirmed by ROSLYN LEE, RUI ([id number]), research editor RICARDO KRAMER ([id number]) on 10/01/2023 5:35:00 AM Referred By: Libby Batres Confirmed By:RUI MCGOWAN MD
[2023-09-30 10:16] LABS: Hematocrit 44.6 % (37-47); Hemoglobin 14.3 g/dL (12.0-15.0); Mean Corp Hgb Conc 32.1 g/dL (32-36); Mean Corpuscular Hgb 31.6 pg (27.0-32.0); Mean Corpuscular Volume 98.5 fL (81-99); Mean Platelet Vol. 9.6 fl (6.2-12.0); Platelet Count 198 K/mm3 (150-450); RBC Distribution Width CV 12.1 % (11.6-14.6); RBC Distribution Width SD 44.3 fl (35.1-43.9); Red Blood Count 4.53 M/mm3 (4.2-5.4); White Blood Count 6.6 K/mm3 (4.4-11.0)
[2023-09-30 11:02] LABS: ALB/GLOB Ratio 1.1 RATIO (0.9-2.4); AST(SGOT) 21 U/L (15-37); Alanine Aminotransfer ALT/SGPT 30 U/L (13-56); Albumin, Serum 3.5 g/dL (3.2-5.0); Alkaline Phosphatase 96 U/L (45-117); Anion Gap 3 (5-15); BUN 19 mg/dL (7-18); BUN/Creat Ratio 26.9 RATIO (10-20); Calcium,Total 9.2 mg/dL (8.5-10.1); Chloride 112 mmol/L (98-107); Creatinine, Serum 0.71 mg/dL (0.55-1.02); EST Glomerular Filtration Rate 88 mL/min (>60); Est Glom Filt Rate - Afr Amer 106 mL/min (>60); Globulin 3.2 g/dL (2.2-4.2); Glucose 98 mg/dL (74-106); Magnesium 2.2 mg/dL (1.6-2.6); Potassium 4.1 mmol/L (3.5-5.1); Protein, Total 6.7 g/dL (6.4-8.2); Sodium Level 143 mmol/L (136-145)
[2023-10-04] VITALS (14 sets, daily range): BP systolic 86–124; BP diastolic 55–73; PULSE 44–73; RESP 12–18; TEMP 35.9–36.7; O2SAT 96–100; BMI 35.5
[2023-10-04] MEDS: Magnesium 1 GM over 15 mins IV (06:22)
[2023-10-04] MEDS: Lactated Ringers 1,000 ML 40 ML IV ×2 (06:22→13:52)
[2023-10-04] MEDS: Acetaminophen 500 MG Tablet 1000 MG PO (06:29)
[2023-10-04] MEDS: GENTAMICIN IV (06:29)
[2023-10-04] MEDS: DEXTROSE 5% IV (06:29)
[2023-10-04] MEDS: WATER IV (06:29)
[2023-10-04] MEDS: Gabapentin 600 MG Tablet PO (06:29)
[2023-10-04 06:43] LABS: Bedside Glucose 150 mg/dL (74-106)
--- NOTE | 2023-10-04 07:20 | HP.PCM_ITS ---
History and Physical Date of Admission: 10/04/23 Intake Vital Signs 07/31/2314:03 09/18/2314:56 09/18/2314:57 Height 5 ft 4 in 5 ft 4 in 5 ft 4 in Weight: 211 lb 8 oz 212 lb BMI 36.3 36.3 BP 117/88 H 114/77 Intake Visit Reasons: RTHBS Chief Complaint: Preop Pathology Lab Technician Required: No Is patient in pain?: No Allergies ampicillin Allergy (Verified 09/27/23 12:09) Itching Medications cholecalciferol (vitamin D3) 25 mcg (1,000 unit) tablet (Vitamin D3) 1,000 unit PO DAILY 07/17/18 [History Confirmed 09/27/23] ascorbate calcium (vitamin C) 500 mg tablet 500 mg PO DAILY 07/17/21 [History Confirmed 09/27/23] calcium carbonate 300 mg (750 mg) chewable tablet (Tums) 300 mg PO PRN PRN Indigestion 09/19/21 [History Confirmed 09/27/23] red beet root 250 mg-sour patel extract 0.5 mg chewable tablet 2 tab PO DAILY 07/19/23 [History Confirmed 09/27/23] magnesium citrate,mag oxide 250 mg capsule 250 mg PO DAILY 09/27/23 [History Confirmed 09/27/23] opvkghum-rxv-sauvv 120 mcg-lutein 150 mcg-herb 37.5 mg chewable tablet (Alive Women's 50 Plus Gummy) 1 tab PO DAILY 09/27/23 [History Confirmed 09/27/23] Is last menstrual period known: No Post menopausal: Yes Patient : No : No PFSH Medical History (Updated 09/27/23 @ 12:27 by Gabriella Llamas) Anxiety Cancer Family hx of colon cancer Gastric reflux Heartburn History of edema History of fainting Injury of head and neck Leg cramps Non-smoker PONV (postoperative nausea and vomiting) Post-menopausal Right carpal tunnel syndrome Syncope Tubular adenoma of colon Wears glasses Surgical History (Updated 09/27/23 @ 12:15 by Gabriella Llamas) History of carpal tunnel surgery of right wrist History of dilation and curettage History of tonsillectomy Hx of colonoscopy Family History Father CAD (coronary artery disease) Alzheimer diseaseMother Colon cancer Alzheimer disease Social History adopted: No household members: spouse housing: house number of children: 4 current occupational status: employed current occupation: [employer] current occupational exposures/hazards: Yes sexually active: Yes Smoking Status: Never smoker alcohol intake: never substance use type: does not use seatbelt use: always do you feel safe at home: Yes additional social history: -[facility] R[facility] Details: RAO MENENDEZ is a 68 year old who presents for preop hysterectomy. She is a mi ldly obese female, (vaginal deliveries) who presented for surgical consultation earlier in the fall. She complains of a bulging sensation in her vaginal area. Her PCP recommended that she be seen by a mapping specialist to discuss surgical options. She also has the complaint of minor incontinence. She states that she is not sexually active as her has diabetes and possibly an alcoholic. She has had all normal pap smears, last one was with her pcp 2 years ago. (records not available). She saw Dr Stevens recently who agrees that she requires some prolapse repair. History 5 Elective abortions Hx Para 4 Spontaneous abortions Hx # Term Pregnancies Ectopic pregnancies Hx # Pregnancies Multiple births # of living children 4 Past Pregnancies Del. Date Name GA/Weeks Outcome Route Bth Weight Gen Labor Lgth Anesthesia Del Locatn Provider FOB Unknown Bill Unknown Jesus Manuel Unknown Julius Unknown Ramses ROS Const ROS Unobtainable: All systems reviewed & are unremarkable except as noted in H Resp Resp: Reports system reviewed and no additional complaints, except as documented; Denies cough GI GI: Reports as per HPI Psych Psych: Reports system reviewed and no additional complaints, except as documented Exam Const General: cooperative, healthy appearing, comfortable and no acute distress Resp Effort & Inspection: normal respiratory effort General: bimanual renal exam normal bilaterally External Female Exam: normal external appearance and normal appearance of the urethra Urethra: normal appearance of the urethra Speculum Exam - Cervix: normal appearance of the cervix Bimanual Exam- Adnexa, other: rectocele, enterocele and cystocele Pelvic Support: cystocele moderate, enterocele moderate and rectocele mild Skin General: no rashes or lesions noted Psych Appearance: grossly normal Speech and Movement: speech and movement normal Coding Level of Care Code Off vis,est,level 4 Diagnoses Prolapse of female pelvic organs N81.9 Assessment and Plan Assessment and Plan (1) Prolapse of female pelvic organs: Status: Acute Plan: due to obesity, will likey proceed with robotic approach for better visualization. After discussing the patient's diagnosis and treatment plan options, patient wishes to proceed with surgical management. I have discussed with the patient the risks, benefits, and alternatives of the procedure which include but are not limited to risks of anesthesia, bleeding, infection, possible damage to bowel, bladder, or surrounding vasculature which could lead to additional surgery to evaluate any complications. Patient agrees to procedure and wishes to proceed. ACOG/uptodate references given for additional information regarding procedure.
--- NOTE | 2023-10-04 07:23 | DCINST_ITS ---
Discharge Instructions Diet Discharge Diet: No restrictions Activity May resume sexual activity in: 6 weeks Weight Bearing Status: Full weight bearing Dressing / Incision Call your doctor if your incision/area has: Continuous Slow Oozing, Sudden Increased Bleeding, Increased Pain/ Swelling, Increased Redness and Foul Smelling Discharge Call your doctor if you observe: Fever of 101 or Higher, Using more than 1 pad per hour, Shortness of breath, Chest pain and Uncontrolled pain Suture Line Care: Avoid Pulling/Pushing and Avoid Pinching/Bending Remove Dressing in: 1 week (if present) Cleanse incision/area with: Soap & Water and Keep Dressing Clean & Dry Follow Up Care Please Follow Up With: Libby Batres DO When: Call to make an appointment with your doctor for a postop visit in 2 and 6 weeks Test Results: Test results from this visit will be discussed in further detail at your follow- up appointment, if applicable. Discharge Plan Admission Primary Reason for Your Visit: hysterectomy and vaginal repair Attending Provider: Libby Batres Primary Care Provider: Apple Quiles Consulting Providers: Aurelia Stevens Discharge Orders/Prescriptions Prescriptions: New ibuprofen 800 mg tablet 800 mg PO Q8H PRN (Reason: pain) Qty: 30 0RF oxycodone-acetaminophen [Percocet] 5-325 mg tablet 1 tab PO Q4H PRN (Reason: pain) 7 Days Qty: 30 0RF Rx Instructions: 1-2 tabs q 4 hrs as needed for pain Continued ascorbate calcium (vitamin C) 500 mg tablet 500 mg PO DAILY red beet root-sour patel ext 250-0.5 mg tablet,chewable 2 tab PO DAILY cholecalciferol (vitamin D3) [Vitamin D3] 1,000 UNIT tablet 1,000 unit PO DAILY calcium carbonate [Tums] 300 mg (750 mg) Tablet,Chewable 300 mg PO PRN PRN (Reason: Indigestion) magnesium citrate,mag oxide 250 mg capsule 250 mg PO DAILY Alive Women's 50 Plus Gummy 120 mcg-150 mcg -37.5 mg tablet,chewable 1 tab PO DAILY Other Ambulatory Orders: 12 Lead EKG (Routine) Timeframe: 20230930 Location: None Selected Ordered By: Dr. Libby Batres Referrals / Follow Up: Apple Quiles MD [Primary Care Provider] - Disposition Disposition (needs filled in before D/C Order can be placed): Home, Self Care
--- NOTE | 2023-10-04 07:30 | HYST_PTH ---
PATHOLOGY RESULTS PATIENT: RAO MENENDEZ LOC: MS3 U#:[id number] AGE/SX: 68/F ROOM: [facility] RE10/04/[address]: Dr. Libby Batres DO : 1955 BED: 1 DIS: 10/05/2023 SPEC #: [id number] RECD: 10/04/23 10:41 STATUS: SULY GTZCheri #: [id number] DAIMOND: 10/04/23 07:[address]: Libby Batres DEPT: SURGICAL PATHOLOGY RECD BY: Micheline Fontenot ENTERED: 10/04/23 11:16 SP TYPE: HYSTERECT OTHR DR: MD Dr. Aurelia Garrido MD Tissues: Uterus, NOS Procedures: Surgery Specimen Level V HEADER OPERATION: amanda STEVE robotic hysterectomy, bilateral salpingo-oophorectomy PRE-OP DIAGNOSIS: Prolapse of pelvic organs TISSUE SUBMITTED: Uterus, bilateral fallopian tubes, bilateral ovaries MICROSCOPIC DIAGNOSIS Uterus, bilateral fallopian tubes and bilateral ovaries, hysterectomy and bilateral salpingo-oophorectomy: Cervix - mild chronic cystic cervicitis. Endometrium - focal simple cystic hyperplasia without atypia. Myometrium - focal adenomyosis. Bilateral fallopian tubes - no pathologic diagnosis. Bilateral ovaries - no pathologic diagnosis. SJ:rg 10/07/2023 COMMENT Case has been reviewed in consultation with Dr. Mccallum who concurs with the above diagnosis. IDC:AM MICROSCOPIC DESCRIPTION Slides are reviewed. GROSS DESCRIPTION Received in fixative is one container labeled with the patient's name and designated uterus, bilateral fallopian tubes, bilateral ovaries. The specimen consists of a hysterectomy specimen consisting of uterus with cervix and attached bilateral fallopian tubes and ovaries. The uterus with cervix weighs 52 gm and measures 7.0 x 5.0 x 3.0 cm. The serosal surface is johnston, glistening. The ectocervical mucosa is focally congested. The external os is oval and patulous in contour. The endocervical canal measures 2.5 cm in length and the endocervical mucosa is unremarkable. The triangular endometrial cavity measures 3.5 cm in length and up to 2.5 cm in width. The endometrium is johnston, glistening without any mass lesion and measures 0.1 cm in thickness. Sections of uterine wall do not reveal any mass lesion and measures up to 1.5 cm in thickness. The right fallopian tube measures 6.0 cm in length and 0.5 cm in diameter. The fimbrial end is identified. No tubo-ovarian adhesions are noted. The right ovary measures 3.0 x 1.5 x 1.0 cm. Sections do not reveal any mass lesion. The left fallopian tube is similar appearance to right and measures 5.0 cm in length and 0.5 cm in diameter. The left ovary is similar to right and measures 2.5 x 1.5 x 1.0 cm. Fiscal Analyst sections are submitted in ten cassettes as follows: 1 - anterior cervix, 2??posterior cervix, 3 & 4 - anterior uterine wall, 5 & 6 - posterior uterine wall, 7 - right fallopian tube, 8??right ovary, 9 - left fallopian tube, 10 - left ovary. / TEOFILO:telma 10/04/23 TC:5 CPT: 43687
[2023-10-04] MEDS: Clindamycin 900 MG/50 ML BAG 75 MG IV (07:45)
[2023-10-04] MEDS: Bupivacaine 0.25% 30 ML Vial ×2 (08:00→09:30)
[2023-10-04] MEDS: Estrogens,Conj. 1 Tube 1 DOSE (09:58)
--- NOTE | 2023-10-04 10:20 | OP.PCM_ITS ---
Report of Operation Date of Procedure: 10/04/23 Pre-Operative Diagnosis: pelvic organ prolapse, obesity Post-Operative Diagnosis: pelvic organ prolapse, obesity Surgery/Procedure Performed:: total robotic hysterectomy, bilateral salpingo- oophorectomy, cystoscopy Description of Surgical Findings:: grade 2 cystocele, normal uterus, fallopian tubes, and ovaries, mild endometriosis of the cul-de sac Surgeon: Libby Batres finishing inspector: Kal Medina Type of Anesthesia: General Specimen's removed: uterus, cervix fallopian tubes, ovaries Drains: none Estimated Blood Loss (mL): 50cc Description of Procedure: cynthia for surgery: This is a 68-year-old G2, P2 who presented to my office with history of uterine prolapse and obesity. the planned procedure is for a robotic hysterectomy and cystocele repair with Dr. Stevens to follow. the risks benefits and alternatives were discussed with the patient the patient had a clear understanding of the procedure and a consent form was signed. Procedure: The patient was placed in the dorsal low lithotomy position and prepped and draped in the normal sterile fashion both abdominally and in the perineum. Her legs were placed in stirrups a Ybarra catheter was inserted into the urethra without difficulty. A weighted speculum was placed in the vagina and a single- tooth tenaculum was used to grasp the anterior lip of the cervix. An advincula uterine manipulator was inserted through the cervix without complication. It was then tied into place at the 2 and 10:00 locations on the cervix. Gloves were changed and attention was turned towards the abdomen. Approximately 23 cm above the pubic symphysis in the midline, and after Marcaine injection, a 8 mm incision was made. An 8 mm trocar was inserted through the laparoscope, then inserted into the abdomen under direct visualization using the laparoscope. Good abdominal placement was noted and no complications were appreciated. An air seal device was utilized to create pneumoperitoneum. At 12 cm lateral to the midline on the left and right sides 8 mm accessory ports were placed. Next a left upper quadrant 8 mm fish hatchery assistant port site was placed. The patient was placed in steep Trendelenburg position. The robot was docked. The hysterectomy was initiated first by taking down the round ligament on each side using the vessel sealer device. The peritoneum between the round ligament and the IP ligament was opened using electrocautery and extended the length of the IP ligament. The IP ligament was then taken down using the vessel sealer device. These areas were freed without complication the broad ligament was then and taken down using the vessel sealer device. Next the bladder flap was taken down without complication. This was done using monopolar cautery to the level of the cervical vaginal junction. After the bladder flap was created, uterine vessels were then isolated and cauterized using the vessel sealer device and EndoShears. At this point the uterine vessels were taken down further starting from the ascending branch, dissecting along the edges of the cervix to the level of the cervical vaginal junction with hemostasis appreciated. The cervical vaginal junction was then using monopolar cautery in a circumferential pattern across the superior aspect of the cervix. The specimen was delivered through the vagina and sent to pathology. The remaining vaginal cuff was then closed using a V lock suture. This was performed in a running technique. Excellent hemostasis was obtained and good closure was noted. Irrigation was then performed. All operative sites were noted to be hemostatic. A cystoscopy was performed with a 70 degree cystoscope through the urethra into the bladder without complication. The bladder was instilled with approximately 250 cc of normal saline. Intraoperative images were made. Ureteral orifices and jets were identified. No suture material was appreciated in the bladder. The bladder was then drained and cystoscope was removed. The abdominal cavity was again examined using the laparoscope after the robot was undocked. All operative sites were noted to be hemostatic. The trochars were removed under direct visualization without complication and pneumoperitoneum was reduced. At this point the skin was then closed using 4-0 Monocryl subcuticular stitch and sealed with surgical glue. The patient tolerated the procedure well sponge lap and needle counts were correct x2 the patient was taken to the recovery room in stable condition. Procedure Start Time: 08:05 Procedure Stop Time: 10:02 Complications none Admit VTE Documentation VTE Present on Admission: No VTE Mechan Device Prophylaxis: SCD's VTE Pharm Prophylaxis ordered?: Yes Multi Select Codes Urinary/Genital Urinary/Genital CPT Codes: 25941 Cystoscopy and 34840 TLH+BS/O <250gr uterus
--- NOTE | 2023-10-04 10:20 | PCM.OPRPT ---
Report of Operation Date of Procedure: 10/04/23 Pre-Operative Diagnosis: Incomplete uterovaginal prolapse Post-Operative Diagnosis: Same Surgery/Procedure Performed:: Anterior repair, cystoscopy with bilateral ureteral catheterization Surgeon: Aurelia Stevens Type of Anesthesia: MAC Specimen's removed: None Estimated Blood Loss (mL): 20 cc Description of Procedure: The patient is a 68-year-old female with pelvic organ prolapse who presents for surgical intervention. Informed consent has been obtained. The patient was taken to the operating room and placed on the operating room table. Anesthesia monitored the head, neck, airway, IV access and vital signs throughout the case. Once anesthesia was appropriate ministered, Dr. Vogel completed her portion of the procedure. At this time I removed the Ybarra catheter which was inserted under sterile condition, and inserted the cystoscope through the urethra under direct visualization. There is no evidence of injury to the urinary bladder, no mass or erythema identified. Bilateral ureteral orifices were seen and intubated carefully with a 5 [place] whistle-tip catheter which extended easily to 20 cm bilaterally without evidence of injury or obstruction. At this time the cystoscope was removed and the Ybarra catheter was replaced. On further evaluation of the post hysterectomy anatomy, the vault support was very good and Dr. Vogel included the sacrospinous ligament and her closure. There was no access anteriorly without difficulty to the sacrospinous ligaments. The decision was made to abort that portion of the procedure and proceed with anterior plication. The anterior vaginal wall was submucosally injected with lidocaine for hydrostatic dissection and hemostatic control. A midline incision was made approximately 2 cm in length. Sharp and blunt dissection was performed bilaterally until the pubocervical fascia was identified. This was brought together in a 2 layer closure with 2-0 Vicryl as well as 3-0 PDS with interrupted sutures. After the repair was complete, the vaginal mucosa was brought together with running interlocking 2-0 Vicryl. The patient was taken out of Trendelenburg and the Ybarra catheter was removed. The cystoscope was inserted once again under direct visualization. The cystocele was obviously repaired and the ureteral orifices were easily accessed. The whistle-tip catheter advanced into each ureter to 20 cm without evidence of injury or obstruction. The whistle-tip catheter and the cystoscope were then removed and the Ybarra catheter was replaced. Vaginal packing and estrogen cream were inserted into the vagina. The patient was awakened and taken to the recovery room in good condition. There were no complications during this procedure. Grafts/Implants Used: None Complications None Admit VTE Documentation VTE Present on Admission: Yes VTE Mechan Device Prophylaxis: SCD's VTE Pharm Prophylaxis ordered?: Yes
--- NOTE | 2023-10-04 10:25 | DCINST_ITS ---
Discharge Instructions Diet Discharge Diet: No restrictions Activity Discharge Activity: May Shower May resume sexual activity in: 8 weeks Weight Bearing Status: Full weight bearing Additional Activity Instructions:: No lifting over 5 pounds, no swimming/hot tubs/tub bathing, no sexual activity, no strenuous activity or exercise Dressing / Incision Call your doctor if your incision/area has: Continuous Slow Oozing, Sudden Increased Bleeding, Increased Pain/ Swelling, Increased Redness and Foul Smelling Discharge Call your doctor if you observe: Fever of 101 or Higher, Inability to urinate, Inability to have a bowel movement, Using more than 1 pad per hour, Shortness of breath, Chest pain and Uncontrolled pain Suture Line Care: Avoid Pulling/Pushing and Avoid Pinching/Bending Cleanse incision/area with: Soap & Water and Keep Dressing Clean & Dry Follow Up Care Please Follow Up With: Libby Batres DO When: Dr. Stevens, the office will call to make follow up arrangements. Test Results: Test results from this visit will be discussed in further detail at your follow- up appointment, if applicable. Discharge Plan Admission Primary Reason for Your Visit: hysterectomy and vaginal repair Attending Provider: Libby Batres Primary Care Provider: Apple Quiles Consulting Providers: Aurelia Stevens Discharge Orders/Prescriptions Prescriptions: New ibuprofen 800 mg tablet 800 mg PO Q8H PRN (Reason: pain) Qty: 30 0RF oxycodone-acetaminophen [Percocet] 5-325 mg tablet 1 tab PO Q4H PRN (Reason: pain) 7 Days Qty: 30 0RF Rx Instructions: 1-2 tabs q 4 hrs as needed for pain cephalexin [cephalexin] 500 mg capsule 500 mg PO Q12 3 Days Qty: 6 0RF Continued ascorbate calcium (vitamin C) 500 mg tablet 500 mg PO DAILY red beet root-sour patel ext 250-0.5 mg tablet,chewable 2 tab PO DAILY cholecalciferol (vitamin D3) [Vitamin D3] 1,000 UNIT tablet 1,000 unit PO DAILY calcium carbonate [Tums] 300 mg (750 mg) Tablet,Chewable 300 mg PO PRN PRN (Reason: Indigestion) magnesium citrate,mag oxide 250 mg capsule 250 mg PO DAILY Alive Women's 50 Plus Gummy 120 mcg-150 mcg -37.5 mg tablet,chewable 1 tab PO DAILY Other Ambulatory Orders: 12 Lead EKG (Routine) Timeframe: [id number] Location: None Selected Ordered By: Dr. Libby Batres Referrals / Follow Up: Apple Quiles MD [Primary Care Provider] - Disposition Disposition (needs filled in before D/C Order can be placed): Home, Self Care
[2023-10-04] MEDS: Lactated Ringers 1,000 ML 100 ML IV (11:12)
[2023-10-04] MEDS: Cefazolin 1 GM/50 ML BAG IV ×2 (15:41→23:16)
[2023-10-04] MEDS: Ketorolac 15 MG/ML Vial IV (18:47)
[2023-10-04] MEDS: Docusate Sodium 100 MG Capsule 200 MG PO (22:03)
[2023-10-05] MEDS: Lactated Ringers 1,000 ML 100 ML IV (00:05)
[2023-10-05 02:53] VITALS: BP 105/65; PULSE 50; RESP 16; TEMP 36.7; O2SAT 96
[2023-10-05 06:39] VITALS: BP 115/67; PULSE 51; RESP 16; TEMP 36.7; O2SAT 95
[2023-10-05] MEDS: Enoxaparin 40 MG/0.4 ML Syringe SC (06:46)
[2023-10-05] MEDS: Ketorolac 15 MG/ML Vial IV (06:49)
[2023-10-05 07:05] VITALS: O2SAT 94
[2023-10-05 07:21] LABS: Hematocrit 36.7 % (37-47); Hemoglobin 12.1 g/dL (12.0-15.0); Mean Corpuscular Hgb 31.8 pg (27.0-32.0); Mean Corpuscular Volume 96.3 fL (81-99); Mean Platelet Vol. 9.5 fl (6.2-12.0); Platelet Count 171 K/mm3 (150-450); RBC Distribution Width CV 12.3 % (11.6-14.6); RBC Distribution Width SD 42.9 fl (35.1-43.9); Red Blood Count 3.81 M/mm3 (4.2-5.4); White Blood Count 11.1 K/mm3 (4.4-11.0)
[2023-10-05 07:49] VITALS: PULSE 50
[2023-10-05] MEDS: Docusate Sodium 100 MG Capsule 200 MG PO (07:59)
[2023-10-05 09:05] LABS: Anion Gap 7 (5-15); BUN 17 mg/dL (7-18); BUN/Creat Ratio 25.4 RATIO (10-20); Calcium,Total 8.6 mg/dL (8.5-10.1); Chloride 112 mmol/L (98-107); Creatinine, Serum 0.67 mg/dL (0.55-1.02); EST Glomerular Filtration Rate 94 mL/min (>60); Est Glom Filt Rate - Afr Amer 113 mL/min (>60); Glucose 127 mg/dL (74-106); Potassium 3.9 mmol/L (3.5-5.1); Sodium Level 142 mmol/L (136-145)
[2023-10-05 10:15] VITALS: BP 110/60; PULSE 56; RESP 20; TEMP 36.7; O2SAT 99
--- NOTE | 2023-10-05 10:25 | PCM.PN.OB ---
Subjective Subjective pt is sitting up in bed. has no complaints and slept on and off due to interruptions from nursing and beeping from IV. denies pain, nausea, chest pain. Wants to go home Objective Data Objective Data Vital Signs: Vital Signs Temp Pulse Resp BP Pulse Ox O2 Del Method O2 Flow Rate 98.1 F 56 L 20 H 110/60 99 Room Air 100 10/05/23 10:15 10/05/23 10:15 10/05/23 10:15 10/05/23 10:15 10/05/23 10:15 10/05/23 10:15 10/04/23 14:03 Oxygen Flow Rate (L/min) 100 Oxygen Delivery Method Room Air Weight: 207 lb 3.752 oz Body Mass Index (BMI) 35.5 Intake & Output: Intake and Output for Last 24 Hours 10/03/23 10/04/23 10/05/23 23:59 23:59 23:59 Intake Total 2701.25 / 3001.25 1300 / 1300 Output Total 2200 / 2450 800 / 800 Balance 501.25 / 551.25 500 / 500 Lab / Micro Data 10/05/23 07:00 10/05/23 07:00 Labs: Laboratory Results - last 24 hr 10/05/23 07:00: WBC 11.1 H, RBC 3.81 L, Hgb 12.1, Hct 36.7 L, MCV 96.3, MCH 31.8, MCHC 33.0, RDW Std Deviation 42.9, RDW Coeff of Hope 12.3, Plt Count 171, MPV 9.5, Sodium 142, Potassium 3.9, Chloride 112 H, Carbon Dioxide 23.0, Anion Gap 7, BUN 17, Creatinine 0.67, Estim Creat Clear Calc 76.90, Est GFR (MDRD) Af Amer 113, Est GFR (MDRD) Non-Af 94, BUN/Creatinine Ratio 25.4 H, Glucose 127 H, Calcium 8.6 ROS Constitutional Constitutional: Denies chills, fatigue, fever(s), poor appetite or weakness Eyes Eyes: Denies blurry vision, change in vision, seeing flashes or spots in vision ENT HEENT: Denies dizziness, headache(s), loss taste/smell or sore throat Cardiovascular Cardiovascular: Denies chest pain, dizziness, dyspnea, irregular heart rhythm, palpitations or rapid heart rate Respiratory/Chest Respiratory/Chest: Denies chest tightness, cough, dyspnea or breast pain Gastrointestinal Gastrointestinal: Denies abdominal pain, constipation or vomiting Genitourinary Genitourinary: Denies dysuria or flank pain Musculoskeletal Musculoskeletal: Denies difficulty walking, joint pain, limited range of motion or numbness Neurologic Neurologic: Denies abnormal movements, abnormal speech, dizziness, numbness, seizure-like activity or syncope Psychiatric Psychiatric: Denies anxiety, behavioral changes, change in appetite, confusion, depression or suicidal thoughts Physical Exam Const alert, oriented x3 and no apparent distress General Appearance: cooperative and comfortable Resp normal respiratory effort Cardio regular rate GI normal to inspection, nondistended, normoactive bowel sounds Palpation: soft no CVA tenderness Narrative: packing removed. only scan pink discharge on it. Bladder / Kidney Exam: catheter in place other (removed without difficulty. ) Back/Spine no CVA tenderness and thoraco-lumbar ROM normal Extremity normal to inspection, no clubbing, cyanosis or edema, no calf tenderness and no pedal edema Psych mental status grossly normal, thought process normal, cooperative, affect normal, speech normal, activity/motor behavior normal, denies homicidal ideation and denies suicidal ideation Assessment & Plan (1) Status post hysterectomy: (2) Prolapse of female pelvic organs: PLAN: Plan patient is s/p robotic hyst and cystocele repair, cystoscopy POD 1 1. routine ERAS protocol postop care- increase ambulation, encourage oral intake and oral control of pain. lovenox and scds for dvt prophylaxis, patient stable for discharge to home after passes voiding trial and examined by Dr. Stevens
--- NOTE | 2023-10-05 12:25 | PCM.PN.GU ---
Subjective Subjective The patient is awake, alert and having no concerns this morning. The catheter and packing are out and she has not yet voided. There is no urgency to void yet. Objective Data Objective Data Vital Signs: Vital Signs Temp Pulse Resp BP Pulse Ox O2 Del Method O2 Flow Rate 98.1 F 56 L 20 H 110/60 99 Room Air 100 10/05/23 10:15 10/05/23 10:15 10/05/23 10:15 10/05/23 10:15 10/05/23 10:15 10/05/23 10:15 10/04/23 14:03 Oxygen Flow Rate (L/min) 100 Oxygen Delivery Method Room Air Weight: 94 kg Body Mass Index (BMI) 35.5 Intake & Output: Intake and Output for Last 24 Hours 10/03/23 10/04/23 10/05/23 23:59 23:59 23:59 Intake Total 2701.25 / 3001.25 1300 / 1300 Output Total 2200 / 2450 1145 / 1145 Balance 501.25 / 551.25 155 / 155 Lab / Micro Data 10/05/23 07:00 10/05/23 07:00 Labs: Laboratory Results - last 24 hr 10/05/23 07:00: WBC 11.1 H, RBC 3.81 L, Hgb 12.1, Hct 36.7 L, MCV 96.3, MCH 31.8, MCHC 33.0, RDW Std Deviation 42.9, RDW Coeff of Hope 12.3, Plt Count 171, MPV 9.5, Sodium 142, Potassium 3.9, Chloride 112 H, Carbon Dioxide 23.0, Anion Gap 7, BUN 17, Creatinine 0.67, Estim Creat Clear Calc 76.90, Est GFR (MDRD) Af Amer 113, Est GFR (MDRD) Non-Af 94, BUN/Creatinine Ratio 25.4 H, Glucose 127 H, Calcium 8.6 Physical Exam Narrative Alert and oriented x 3, standing at bedside and walking around with SCDs in place. Ybarra catheter has been removed. Assessment & Plan Assessment/Plan (1) Prolapse of female pelvic organs: PLAN: Plan Await trial of void Home today with or without Ybarra
[2023-10-05 14:13] VITALS: BP 137/66; PULSE 51; RESP 18; TEMP 36.8; O2SAT 99
== END 2023-10-05 14:30 | disposition home or self-care (01) ==
LOC: SDC 14:03 → MS3 14:03
PROVIDERS: Urology; Admitting Provider Obstetrics & Gynecology; PCP Family Medicine; Referring Provider Obstetrics & Gynecology; Visit Provider Obstetrics & Gynecology
PROC: 0UT90ZZ Resection of Uterus, Open Approach (ICD-10-PCS; CPT 58571; principal; 2023-10-04 07:10)
PROC: (CPT 57260; 2023-10-04 07:10)
DX: N81.2 Incomplete uterovaginal prolapse (principal); Z68.36 Body mass index [BMI] 36.0-36.9, adult; E66.9 Obesity, unspecified; N85.01 Benign endometrial hyperplasia; E78.00 Pure hypercholesterolemia, unspecified; E55.9 Vitamin D deficiency, unspecified; Z79.899 Other long term (current) drug therapy; K21.9 Gastro-esophageal reflux disease without esophagitis; N95.2 Postmenopausal atrophic vaginitis; N39.41 Urge incontinence; R35.1 Nocturia
CPT/HCPCS: 58571; S2900; 00840; 57268; 36415; 80048; 80053; 82962; 83735; 85027; 86850; 86900; 86901; 88307; 93005; 94668; 96361; 96365; 96366; 96372; 96375; 96376; 99221; J7120; C1758; G0378; J2405; J3475

== ENCOUNTER 2023-10-11 10:27 | Emergency (ER) | payer OTHER, SELFPAY ==
[2023-10-11 10:27] VITALS: BP 143/91; PULSE 90; RESP 16; TEMP 36.4; O2SAT 98
--- NOTE | 2023-10-11 10:39 | ED.VIS.LOWEX ---
HPI History of Present Illness HPI Narrative: Patient presents with left leg pain that has been getting progressively worse since yesterday. Patient states it is gradually gotten worse. Patient describes it as aching. Patient states nothing makes it worse and nothing makes it better. Patient states she had recent surgery last week. Patient states it was a laparoscopic hysterectomy. Patient denies any problems with the surgery. Patient denies any fevers or chills. Patient states her pain has been getting progressively worse. Patient states she took a pain pill which did help. Chief Complaint: Lower Extremity Injury Onset/Context/Timing Onset: Yesterday Context: Gradual Onset Timing: Continuous Quality of Pain: Aching Location: Left lower leg Worsened by: Nothing Relieved by: Nothing Associated Symptoms Associated Symptoms: Negative for Parasthesia or Weakness PFSH [facility] Medical History (Updated 10/11/23 @ 11:[address] Magdiel Ram, DO) Anxiety Cancer Family hx of colon cancer Gastric reflux Heartburn History of edema History of fainting Injury of head and neck Leg cramps Non-smoker PONV (postoperative nausea and vomiting) Post-menopausal Right carpal tunnel syndrome Syncope Tubular adenoma of colon Wears glasses Home Medications cholecalciferol (vitamin D3) 25 mcg (1,000 unit) tablet (Vitamin D3) 1,000 unit PO DAILY 07/17/18 [History Last Taken 10/02/23] ascorbate calcium (vitamin C) 500 mg tablet 500 mg PO DAILY 07/17/21 [History Last Taken 10/03/23] calcium carbonate 300 mg (750 mg) chewable tablet (Tums) 300 mg PO PRN PRN Indigestion 09/19/21 [History Last Taken Unknown] red beet root 250 mg-sour patel extract 0.5 mg chewable tablet 2 tab PO DAILY 07/19/23 [History Last Taken 10/03/23] magnesium citrate,mag oxide 250 mg capsule 250 mg PO DAILY 09/27/23 [History Last Taken 10/03/23] svwavtid-oif-fosak 120 mcg-lutein 150 mcg-herb 37.5 mg chewable tablet (Alive Women's 50 Plus Gummy) 1 tab PO DAILY 09/27/23 [History Last Taken 10/03/23] cephalexin 500 mg capsule 500 mg PO Q12 post-operative 3 days #6 CAPSULES 10/04/23 [Rx Last Taken Unknown] ibuprofen 800 mg tablet 800 mg PO Q8H PRN pain #30 tabs 10/04/23 [Rx Last Taken Unknown] oxycodone-acetaminophen 5 mg-325 mg tablet (Percocet) 1 tab PO Q4H PRN pain 7 days #30 tabs 10/04/23 [Rx Last Taken Unknown] rivaroxaban 15 mg tablet (Xarelto) 15 mg PO BID #42 TABLETS 10/11/23 [Rx Last Taken Unknown] Allergy/AdvReac Type Severity Reaction Status Date / Time ampicillin Allergy Itching Verified 10/11/23 10:27 Family History Father CAD (coronary artery disease) Alzheimer disease Mother Colon cancer Alzheimer disease Surgical History (Updated 10/11/23 @ 11:[address] Magdiel Ram DO) History of carpal tunnel surgery of right wrist History of dilation and curettage History of tonsillectomy Hx of colonoscopy Status post hysterectomy Social History adopted: No household members: spouse housing: house number of children: 4 current occupational status: employed current occupation: [employer] current occupational exposures/hazards: Yes sexually active: Yes Smoking Status: Never smoker alcohol intake: never substance use type: does not use seatbelt use: always do you feel safe at home: Yes additional social history: -Eric MONTEZ ED Constitutional Constitutional ED: Denies chills or fever(s) Eyes Eyes: Denies blurry vision or change in vision ENT ENT ED: Reports rhinorrhea; Denies sore throat Cardiovascular Cardiovascular: Denies chest pain or palpitations Respiratory/Chest Respiratory/Chest: Reports cough; Denies dyspnea Gastrointestinal Gastrointestinal: Denies nausea or vomiting Genitourinary Genitourinary ED: Denies dysuria or hematuria Musculoskeletal Musculoskeletal: Denies back pain or neck pain Integumentary Denies abscess or rash Neurologic Neurologic: Denies headache(s) or weakness Allergic/Immunologic Allergic/Immunologic ED: Denies mouth swelling or urticaria EXAM Physical Exam Const Vital Signs: 10/11/23 10:27 Temperature 97.6 F L Temperature Source Temporal Pulse Rate 90 Respiratory Rate 16 Blood Pressure 143/91 H Blood Pressure Mean 108 Pulse Ox 98 Oxygen Delivery Method Room Air Positive well nourished and well developed General Appearance ED: well developed and NAD HEENT Reports moist mucous membranes Neck full ROM and supple Extremity Extremity Narrative: There is tenderness over the left calf. There is mild edema. There is no ecchymosis noted. There is no deformity noted. There is no pain with dorsiflexion of the ankle. There is some mild tenderness in the popliteal fossa. There is good range of motion of the left ankle, left knee, and left hip. Pedal pulses are equal bilaterally. Sensation was intact to light touch bilaterally in the lower extremities. Strength is 5/5 bilaterally in the lower extremities. Neuro oriented x3, CN's II-XII intact bilaterally, moves all extremities and no sensory deficits noted Sensorium / Orientation: alert Motor Exam: strength 5/5 throughout Psych mental status grossly normal MDM MDM MDM Narrative Medical decision making narrative: Differential diagnosis includes DVT and muscle strain. Venous duplex of the left lower extremity will be obtained to assess for DVT. Radiography Diagnostic Testing: Venous duplex of the left lower extremity was obtained. There is acute DVT noted in the left distal femoral vein, popliteal vein, peroneal vein, and soleus vein. There are also superficial vein thrombosis noted in the left superficial saphenous vein. Treatment and Re-Evaluation Narrative: Patient was advised of her findings. Patient was given a dose of Xarelto here. Patient was given a prescription for Xarelto. Patient was instructed to keep her leg elevated. Patient was instructed to follow-up with her primary care physician in 5 to 7 days. Patient was instructed to follow-up with her surgeons as scheduled. Patient understood and was agreeable with the plan. All questions were answered. Discharge Plan Triage Chief Complaint: Lower Extremity Injury ED Provider: Magdiel Ram Dx/Rx/DC Orders Clinical Impression: Acute deep vein thrombosis (DVT) of left lower extremity, Status post hysterectomy Instructions: ED Deep Vein Thrombosis (DVT) Prescriptions: New Xarelto 15 mg tablet 15 mg PO BID Qty: 42 0RF No Action ascorbate calcium (vitamin C) 500 mg tablet 500 mg PO DAILY red beet root-sour patel ext 250-0.5 mg tablet,chewable 2 tab PO DAILY cholecalciferol (vitamin D3) [Vitamin D3] 1,000 UNIT tablet 1,000 unit PO DAILY calcium carbonate [Tums] 300 mg (750 mg) Tablet,Chewable 300 mg PO PRN PRN (Reason: Indigestion) magnesium citrate,mag oxide 250 mg capsule 250 mg PO DAILY Alive Women's 50 Plus Gummy 120 mcg-150 mcg -37.5 mg tablet,chewable 1 tab PO DAILY ibuprofen 800 mg tablet 800 mg PO Q8H PRN (Reason: pain) Qty: 30 0RF oxycodone-acetaminophen [Percocet] 5-325 mg tablet 1 tab PO Q4H PRN (Reason: pain) 7 Days Qty: 30 0RF Rx Instructions: 1-2 tabs q 4 hrs as needed for pain cephalexin [cephalexin] 500 mg capsule 500 mg PO Q12 3 Days Qty: 6 0RF Primary Care Provider: Apple Quiles Referrals: Apple Quiles MD [Primary Care Provider] - 1-2 Weeks Aurelia Stevens MD [Med Staff - Active Staff] - [facility] appointment Libby Batres DO [Med Staff - Active Staff] - [facility] appointment Disposition Disposition: Home, Self Care
--- NOTE | 2023-10-11 10:45 | VDLE_ITS ---
Reason For Study: Left leg pain RIGHT LEFT CFV is compressible, spontaneous, phasic, GSV is normal. competent and demonstrates normal CFV is compressible, spontaneous, phasic, augmentation. competent, and demonstrates normal Procedure augmentation. This is a venous duplex using B-mode, color FV prox-mid is compressible with normal flow and spectral Doppler. venous flow noted. Exam performed portable in ED. Acute deep vein thrombosis is noted in the A preliminary report was called and/or faxed left FV distal, PopV, T/P Trunk, PeroV and to Dr. Ram. SoleusV. It is NONCMPRESSIBLE and dilated. Acute superficial vein thrombosis is noted in the left SSV from origin to prox. Thrombus filled varicose veins are noted in the prox calf. VL/Venous Duplex US, Unilateral Interpretation Summary Acute deep vein thrombosis is noted in the left distal femoral vein, popliteal vein, tibioperoneal trunk vein, peroneal vein, soleus vein. Acute superficial vein thrombosis is noted in the left small saphenous vein and calf varicosities Ordering Physician: Magdiel Ram Referring Physician: Apple Quiles M.D. Performed By: Marleny Ng RVT
[2023-10-11 11:14] VITALS: BMI 35.4
[2023-10-11] MEDS: Rivaroxaban 15 MG Tablet PO (11:35)
== END 2023-10-11 11:47 | disposition home or self-care (01) ==
PROVIDERS: Emergency Provider Emergency Medicine; PCP Family Medicine; Visit Provider Emergency Medicine
DX: Z90.710 Acquired absence of both cervix and uterus (principal); I82.412 Acute embolism and thrombosis of left femoral vein
CPT/HCPCS: 93971; 99282

== ENCOUNTER 2024-01-12 16:16 | Emergency (ER) | payer OTHER, SELFPAY ==
[2024-01-12 16:20] VITALS: BP 119/76; PULSE 100; RESP 20; TEMP 36.1; O2SAT 97; BMI 35.9
--- NOTE | 2024-01-12 17:21 | ED.VIS.LOWEX ---
HPI History of Present Illness HPI Narrative: Patient presents with pain and swelling to her left lower leg and popliteal area that has been getting worse over the past 3 days. Patient was diagnosed with a DVT after her hysterectomy in September. Patient was on Xarelto for 3 months. Patient finished that on 01/01/2024. Patient states that she noted some pain in her popliteal area few days ago. Patient states today she was sitting with her feet up and noticed that her left leg was more swollen than her right. Patient admits to some mild aching in her calf and popliteal area. Patient states nothing makes it better and nothing makes it worse. Patient denies any paresthesias or weakness. Patient denies any trauma or injury. Chief Complaint: Lower Extremity Injury Informant: patient Onset/Context/Timing Onset: Days (3) Context: Gradual Onset Timing: Continuous Quality of Pain: Aching Location: Left knee and popliteal fossa Worsened by: Nothing Relieved by: Nothing Associated Symptoms Associated Symptoms: Negative for Parasthesia, Weakness or Loss of Funtion PFSH PFSH Medical History Anxiety Cancer Family hx of colon cancer Gastric reflux Heartburn History of edema History of fainting Injury of head and neck Leg cramps Non-smoker PONV (postoperative nausea and vomiting) Post-menopausal Right carpal tunnel syndrome Syncope Tubular adenoma of colon Wears glasses Home Medications cholecalciferol (vitamin D3) 25 mcg (1,000 unit) tablet (Vitamin D3) 1,000 unit PO DAILY 07/17/18 [History Last Taken 10/02/23] ascorbate calcium (vitamin C) 500 mg tablet 500 mg PO DAILY 07/17/21 [History Last Taken 10/03/23] calcium carbonate (Tums) 300 mg PO PRN PRN Indigestion 09/19/21 [History Last Taken Unknown] red beet root 250 mg-sour patel extract 0.5 mg chewable tablet 2 tab PO DAILY 07/19/23 [History Last Taken 10/03/23] magnesium citrate,mag oxide 250 mg capsule 250 mg PO DAILY 09/27/23 [History Last Taken 10/03/23] otkfwuzy-cqp-hpcqx 120 mcg-lutein 150 mcg-herb 37.5 mg chewable tablet (Alive Women's 50 Plus Gummy) 1 tab PO DAILY 09/27/23 [History Last Taken 10/03/23] rivaroxaban 15 mg tablet (Xarelto) 15 mg PO BID #42 TABLETS 10/11/23 [Rx Last Taken Unknown] Allergy/AdvReac Type Severity Reaction Status Date / Time ampicillin Allergy Itching Verified 01/12/24 16:20 Family History Father CAD (coronary artery disease) Alzheimer disease Mother Colon cancer Alzheimer disease Surgical History History of carpal tunnel surgery of right wrist History of dilation and curettage History of tonsillectomy Hx of colonoscopy Status post hysterectomy Social History adopted: No household members: spouse housing: house number of children: 4 current occupational status: employed current occupation: [employer] current occupational exposures/hazards: Yes sexually active: Yes Smoking Status: Never smoker alcohol intake: never substance use type: does not use seatbelt use: always do you feel safe at home: Yes additional social history: -Eric MONTEZ ROS ED Constitutional Constitutional ED: Denies chills or fever(s) Eyes Eyes: Denies blurry vision or change in vision ENT ENT ED: Denies rhinorrhea or sore throat Cardiovascular Cardiovascular: Denies chest pain or palpitations Respiratory/Chest Respiratory/Chest: Denies cough or dyspnea Gastrointestinal Gastrointestinal: Denies nausea or vomiting Genitourinary Genitourinary ED: Denies dysuria or hematuria Musculoskeletal Musculoskeletal: Denies back pain or neck pain Integumentary Denies abscess or rash Neurologic Neurologic: Denies headache(s) or weakness Allergic/Immunologic Allergic/Immunologic ED: Denies mouth swelling or urticaria EXAM Physical Exam Const Vital Signs: 01/12/24 16:20 Temperature 97 F L Temperature Source Temporal Pulse Rate 100 Respiratory Rate 20 H Blood Pressure 119/76 Blood Pressure Mean 90 Pulse Ox 97 Oxygen Delivery Method Room Air Positive well nourished and well developed General Appearance ED: well developed HEENT Reports moist mucous membranes Neck supple and no JVD Extremity normal to inspection General Extremety ED: Yes edema; Negative for tenderness General Extremity: edema left lower extremity mild Neuro oriented x3, CN's II-XII intact bilaterally and no sensory deficits noted Sensorium / Orientation: alert Motor Exam: strength 5/5 throughout Psych mental status grossly normal MDM MDM MDM Narrative Medical decision making narrative: Patient was advised that venous duplex imaging is unable to be obtained today. Patient was given a dose of Lovenox. Patient was given an order to have an outpatient venous duplex tomorrow. Patient was instructed return tomorrow morning for this. Patient was instructed to ice and elevate her left leg. Patient was instructed to return if worse in any way. Patient understood and was agreeable with the plan. All questions were answered. Discharge Plan Triage Chief Complaint: Lower Extremity Injury ED Provider: Magdiel Ram Dx/Rx/DC Orders Clinical Impression: Edema of left lower extremity, Pain in left lower leg Instructions: ED Pain, Acute, Uncertain Cause Prescriptions: No Action ascorbate calcium (vitamin C) 500 mg tablet 500 mg PO DAILY red beet root-sour patel ext 250-0.5 mg tablet,chewable 2 tab PO DAILY cholecalciferol (vitamin D3) [Vitamin D3] 1,000 UNIT tablet 1,000 unit PO DAILY calcium carbonate [Tums] 300 mg (750 mg) Tablet,Chewable 300 mg PO PRN PRN (Reason: Indigestion) magnesium citrate,mag oxide 250 mg capsule 250 mg PO DAILY Alive Women's 50 Plus Gummy 120 mcg-150 mcg -37.5 mg tablet,chewable 1 tab PO DAILY Xarelto 15 mg tablet 15 mg PO BID Qty: 42 0RF Other Ambulatory Orders: Venous Duplex US, Unilateral (Stat) Facility: [facility] - Location: [facility] Ordered By: Dr. Magdiel Ram Primary Care Provider: Apple Quiles Referrals: Apple Quiles MD [Primary Care Provider] - 5-7 Days Disposition Disposition: Home, Self Care
[2024-01-12] MEDS: Enoxaparin 100 MG/ML Syringe SC (17:48)
== END 2024-01-12 17:52 | disposition home or self-care (01) ==
LOC: ED 17:36
PROVIDERS: Emergency Provider Emergency Medicine; PCP Family Medicine; Visit Provider Emergency Medicine
DX: R60.0 Localized edema (principal); M79.662 Pain in left lower leg; Z90.710 Acquired absence of both cervix and uterus; Z86.718 Personal history of other venous thrombosis and embolism; Z79.01 Long term (current) use of anticoagulants
CPT/HCPCS: 96372; 99282

== ENCOUNTER → 2024-01-13 | Outpatient (CLI) | payer OTHER, SELFPAY ==
--- NOTE | 2024-01-13 15:00 | VDLE_ITS ---
Reason For Study: LLE Swelling RIGHT LEFT CFV is compressible, spontaneous, phasic, GSV is normal. competent and demonstrates normal CFV is compressible, spontaneous, phasic, augmentation. competent, and demonstrates normal Procedure augmentation. This is a venous duplex using B-mode, color FV is compressible, spontaneous, phasic, flow and spectral Doppler. competent and demonstrates normal Exam performed in department. augmentation. A preliminary report was called and/or faxed T/P Trunk is compressible. to Dr. Etta Rey. PTV is compressible. Lt PopV is partially compressible consistent with acute partial DVT Lt PeroV is DILATED and NON COMPRESSIBLE consistent with acute DVT Lt SSV is NON COMPRESSIBLE; the thrombus extends into the Lt PopV Lt Varicosity behind the knee is DILATED and NON COMPRESSIBLE consistent with acute SVT. VL/Venous Duplex US, Unilateral Interpretation Summary Acute deep vein thrombosis is noted in the left popliteal vein, peroneal vein. Acute superficial vein thrombosis noted in the small saphenous vein and adjacen t varicosities. Ordering Physician: Magdiel Ram Referring Physician: Apple Quiles Performed By: Lisa Sheikh, TACHO, RVT
== END | disposition home or self-care (01) ==
LOC: CVS 15:27
PROVIDERS: PCP Family Medicine; Referring Provider Emergency Medicine; Visit Provider Emergency Medicine
DX: M79.89 Other specified soft tissue disorders (principal)
CPT/HCPCS: 93971

== ENCOUNTER → 2024-08-06 | Outpatient (CLI) | payer OTHER, SELFPAY ==
--- NOTE | 2024-08-06 14:46 | BI_ITS ---
MAMMOGRAPHY - BILATERAL SCREENING REASON FOR EXAM: Female, 68 years old. Routine annual screening examination. PERTINENT HISTORY: Non-contributory. TECHNIQUE: Digital bilateral breast mac (3D mammographic acquisition) in the CC and MLO projections. 2-D mediolateral oblique (MLO) and craniocaudad (CC) views of both breasts were obtained. CAD: Full Field Digital Mammography with Computer Added Detection was performed. COMPARISON: Comparison is made with prior study August 05, 2023 and January 18, 2022. FINDINGS: Breast Composition: The breasts are almost entirely fatty. There are no dominant masses or suspicious calcifications. Stable 7.7 mm well-defined nodule in the axillary region of the right breast. This is suggestive of a small lymph node. No other significant abnormalities are identified. There has been no significant change since the prior study. BI/SCRN MAMM (CAD)W/MAC BILAT IMPRESSION: Stable bilateral screening mammogram. Yearly follow-up mammogram recommended. (A) ASSESSMENT CATEGORY: BIRADS Category 2: Benign. A letter regarding these results will be sent to the patient by the facility within 30 days. Approximately 10% of breast cancers are not detected by mammography. A normal mammogram should not delay biopsy of a clinically suspicious abnormality. [id number] Electronically Signed: Parish Echeverria MD at 15:44 EST ,
== END | disposition home or self-care (01) ==
LOC: OPBI 14:46
PROVIDERS: PCP Family Medicine; Referring Provider Family Medicine; Visit Provider Family Medicine
DX: Z12.31 Encounter for screening mammogram for malignant neoplasm of breast (principal)
CPT/HCPCS: 77063; 77067

== ENCOUNTER → 2024-08-13 | Outpatient (CLI) | payer OTHER, SELFPAY ==
--- NOTE | 2024-08-13 14:39 | VDLE_ITS ---
Reason For Study: BLE Swelling RIGHT LEFT CFV is compressible, spontaneous, phasic, CFV is compressible, spontaneous, phasic, competent and demonstrates normal competent, and demonstrates normal augmentation. augmentation. FV is compressible, spontaneous, phasic, FV is compressible, spontaneous, phasic, competent and demonstrates normal competent and demonstrates normal augmentation. augmentation. POP V is compressible, spontaneous, phasic, POP V is compressible, spontaneous, phasic, competent and demonstrates normal competent and demonstrates normal augmentation. augmentation. T/P Trunk is compressible. T/P Trunk is compressible. PTV is compressible. PTV is compressible. RT PerV is compressible. LT PerV is compressible. SFJ is competent and measures 0.73 cm. SFJ is competent and measures 0.69 cm. GSV proximal thigh measures 0.37 x 0.33 cm. GSV proximal thigh measures 0.41 x 0.42 cm. GSV at knee measures 0.29 x 0.33 cm. GSV at knee measures 0.29 x 0.28 cm. GSV INCOMPETENT throughout for greater than GSV INCOMPETENT throughout for greater than 0.5 seconds. 0.5 seconds. ASV proximal thigh is INCOMPETENT for greater ASV mid calf is INCOMPETENT for greater than than 0.5 seconds and measures 0.44 x 0.42 cm. 0.5 seconds and measures 0.21 x 0.23 cm. ASV mid thigh is INCOMPETENT for greater than SSV at junction is INCOMPETENT for greater 0.5 seconds and measures 0.55 x 0.52 cm. than 0.5 seconds and measures 0.75 cm. SSV at junction is competent and measures SSV mid calf is INCOMPETENT for greater than 0.22 cm. 0.5 seconds and measures 0.52 x 0.66 cm. SSV mid calf is competent and measures 0.21 x 0.22 cm. Procedure Exam performed in department. This is a venous duplex using B-mode, color flow and spectral Doppler. The exam was diagnostic. Patient was scanned in reverse Trendelenburg position during reflux assessment. VL/Venous Duplex US - Tomer Extrem Interpretation Summary Deep veins of the bilateral lower extremities are patent and compressible segme ntally. There is no evidence of bilateral lower extremity deep vein thrombosis. The bilateral great saphenous veins appear patent and compressible segmentally. Positive for reflux in the right great saphenous vein throughout, two accessory saphenous veins in the thigh. Positive for reflux in the left great saphenous vein throughout, accessory saph enous vein in the calf, and small saphenous vein throughout. Ordering Physician: Crystal Gutierrez Referring Physician: Apple Bocanegra Performed By: George Tse RVT
== END | disposition home or self-care (01) ==
LOC: CVS 14:39
PROVIDERS: PCP Family Medicine; Referring Provider Physician Assistant; Visit Provider Physician Assistant
DX: I82.409 Acute embolism and thrombosis of unspecified deep veins of unspecified lower extremity (principal); I87.2 Venous insufficiency (chronic) (peripheral)
CPT/HCPCS: 93970

== ENCOUNTER → 2024-12-09 | Outpatient (CLI) | payer OTHER, SELFPAY ==
--- NOTE | 2024-12-09 14:53 | BD_ITS ---
PROCEDURE: DEXA BONE DENSITY STUDY REASON FOR EXAM: POSTMENOPAUSAL TECHNIQUE: DEXA scan of lumbar spine and bilateral hips, using a Hologic Horizon W unit. REFERENCE LINKS: ISCD Adult Positions COMPARISON: 01/18/2022 FINDINGS: LUMBAR SPINE: Bone mineral denisty, L1-L3: 1.140 g/cm??? T-score: 1.1 LEFT FEMORAL NECK: Bone mineral denisty: 0.816 g/cm??? T-score: -0.3 LEFT TOTAL HIP: Bone mineral denisty: 0.969 g/cm??? T-score: 0.2 RIGHT FEMORAL NECK: Bone mineral denisty: 0.895 g/cm??? T-score: 0.4 RIGHT TOTAL HIP: Bone mineral denisty: 0.990 g/cm??? T-score: 0.4 FRAX*: 10 Year Probability of Fracture: Major Osteoporotic Fracture(1): 6.8% Hip Fracture(2): 0.3% *FRAX is a trademark of the [employer]'s [place] for Metabolic Bone Disease, World Health Organization (WHO) Collaborating [place]. 1-Major Osteoporotic Fracture: Clinical Spine, Forearm, Hip or Shoulder. 2-The 10-year probability of fracture may be lower than reported if the patient has received treatment. BD/Dexa Bone Density Study IMPRESSION: 1. Bone mineral denisty is normal. 2. Since 01/18/2022, there has been an increase of 1.5% in the bone mineral den sity of the total RIGHT hip. 3. Additional description as above. Reading Location: [id number]
== END | disposition home or self-care (01) ==
LOC: OPBD 14:40
PROVIDERS: PCP Family Medicine; Referring Provider Obstetrics & Gynecology; Visit Provider Obstetrics & Gynecology
DX: Z78.0 Asymptomatic menopausal state (principal)
CPT/HCPCS: 77080

== ENCOUNTER → 2025-03-02 | Outpatient (CLI) | payer OTHER, SELFPAY ==
[2025-03-02 17:12] LABS: Erythrocyte Sedimentation Rate 7 mm/hr (0-30)
[2025-03-04 11:08] LABS: ANTINUCLEAR ANTIBODIES DIRECT Negative (Negative)
== END | disposition home or self-care (01) ==
LOC: LAB 15:50
PROVIDERS: Referring Provider Physician Assistant; Visit Provider Physician Assistant
DX: I87.2 Venous insufficiency (chronic) (peripheral) (principal); I82.409 Acute embolism and thrombosis of unspecified deep veins of unspecified lower extremity; Z83.2 Family history of diseases of the blood and blood-forming organs and certain disorders involving the immune mechanism
CPT/HCPCS: 36415; 81240; 81241; 85240; 85300; 85301; 85303; 85305; 85306; 85652; 86038; 86146; 86147; 86160; 86162; 86225

== ENCOUNTER → 2025-07-07 | Outpatient (CLI) | payer OTHER, SELFPAY | END | disposition home or self-care (01) | LOC: LAB 10:52 | PROVIDERS: PCP Family Medicine; Referring Provider Physician Assistant; Visit Provider Physician Assistant | DX: I82.409 Acute embolism and thrombosis of unspecified deep veins of unspecified lower extremity (principal); Z83.2 Family history of diseases of the blood and blood-forming organs and certain disorders involving the immune mechanism | CPT/HCPCS: 36415; 85240; 85245 ==

== ENCOUNTER → 2025-08-10 | Outpatient (CLI) | payer OTHER, SELFPAY ==
--- NOTE | 2025-08-10 15:51 | BI_ITS ---
EXAM: SCRN MAMM (CAD)W/MAC BILAT DATE: 08/10/2025 CLINICAL HISTORY: F, Age 69 y/o , SCREENING TECHNIQUE: Procedure Code: [id number] Modality: MG Procedure: SCRN MAMM (CAD)W/MAC BILAT COMPARISON: Prior exam(s) were compared FINDINGS: TISSUE DENSITY: There are scattered areas of fibroglandular density. Bilateral Breast Mammographic Findings: No significant masses, calcifications or other abnormalities are identified. BI/SCRN MAMM (CAD)W/MAC BILAT IMPRESSION: No mammographic evidence of malignancy in either breast. OVERALL FINAL ASSESSMENT BI-RADS 1: NEGATIVE.. RECOMMENDATION: Routine annual follow-up in 1 Year Additional Recommendation none A letter with findings and recommendations will be mailed to the patient. Reading Location: [id number]
== END | disposition home or self-care (01) ==
PROVIDERS: PCP Family Medicine; Referring Provider Family Medicine; Visit Provider Family Medicine
DX: Z12.31 Encounter for screening mammogram for malignant neoplasm of breast (principal)
CPT/HCPCS: 77063; 77067